=== PATIENT | female | born 1940 | race Two or more races ===

== ENCOUNTER 2025-07-30 00:13 | Inpatient (IN) | payer MEDICARE, MEDICAID ==
[~2025-07-30] VITALS: Ht 162.6 cm; Wt 67.7 kg
--- NOTE | 2025-07-30 01:47 | ED.PDOC ---
GI ASSESSMENT HPI Comments Past Medical History: Past Surgical History: Clarence: HPI: Poor Historian. 85-year-old female presents to emergency department by ambulance from home for five day history of right lower quadrant with the associated diarrhea brown in color. Patient had some episodes of nonspecific nausea and vomiting but weston xiongly denies any nausea and vomiting. Pain is constant nonradiating. No alleviating or precipitating factors. Past Medical History: Past Surgical History: REVIEW OF SYSTEMS: CONSTITUTIONAL: Denies acute: fever, diaphoresis, chills, HEAD: Denies acute: headache, photophobia Eyes: Denies acute: Double vision, vision loss, eye pain, eye discharge. EARS: Denies acute: tinnitus, hearing loss, ear discharge, ear pain, THROAT: Denies acute: sore throat, swelling, difficulty swallowing , pain with swallowing, change in voice. NECK: Denies acute: neck pain, neck swelling, stiff neck. HEART: Denies acute : chest pain, palpitations, LUNGS: Denies acute: SOB, wheezing, cough, hemoptysis ABDOMEN: Denies acute: melena , hematemesis, hematochezia SKIN: Denies acute: rash, redness, lesions, itchiness. EXTREMITIES: Denies acute: calf pain, numbness, tingling, weakness, denies pain in extremity. Denies acute: Low back pain. Neuro: Denies acute: focal neurological deficit, motor or sensory focal neurological deficit, tremors, seizure like activity, confusion, dizziness, change in mental status, loss of bowel or bladder function, cauda equina like symptoms. : Denies acute: dysuria, hematuria, flank pain, increase in urinary frequency. PSYCH: Denies acute: hallucination, suicidal ideation, homicidal ideation. FEMALE: Denies acute: abnormal vaginal bleeding, foul odor, unusual discharge. PHYSICAL EXAM: General: ---moderate-----acute distress, awake and alert. Head: normocephalic, atraumatic. No raccoon's eyes, no rudolph sign. Neck: supple, trachea is midline, no swelling. Throat: Normal phonation. Eyes:, no erythema, no purulent discharge, no proptosis, no icterus. Heart: regular rate, regular rhythm, no significant murmur appreciated. Lungs: no apparent respiratory distress, Able to speak in full sentences. No wheezing, no rhonchi, no crackles. No stridors Clear to auscultation bilaterally. Abdomen: Right lower quadrant tender to palpation, non distended, soft, no guarding, no rebound, + bowel sounds. Neuro: Awake, Alert, oriented to name, self, situation, follows commands GCS=15. Speech is normal. Skin: no petechia, no purpura, no cyanosis, non-pale, not jaundice. Lower extremities: --trace- Pitting edema no deformity, no focal swelling, no calf TTP. Makes eye contact. moves all four extremities. Face: no apparent facial droop. ED COURSE: DISCLAIMER: This medical document was created using an electronic medical record system with voice recognition software and computerized dictation system. Although this document has been carefully reviewed, there might still be some phonetic and typographical errors. Occasional wrong-word or "sound-alike" substitutions may have occurred due to the inherent limitations of voice recognition software. These areas are purely typographical due to imperfections of the software programs and do not reflect any compromise in the patient's medical care. Please read the chart carefully and recognize, using context, where these substitutions have occurred. Chief Complaint: Abdominal Pain Time Seen by MD: 01:45 Reviewed Notes: Nurses Notes, Allergies Allergies: Coded Allergies: No Known Drug Allergy (Verified Allergy, Unknown, 07/30/25) Information Source: Patient Mode of Arrival: EMS Was a procedure done? Was a procedure done?: No GI differential Dx Differential Diagnosis: Other (DDX include Diverticulitis, colitis, gastroenteritis, acute abdomen, SBO, enteritis, constipation, volvulus, appendicitis, Gallbladder disease, choledocolithiasis, ascending cholangitis, pancreatitis, intraAbdominal mass/neoplasm, hepatitis, UTI, pylonephritis, kidney stone, aneurysm, dissection, Inflammatory bowel disease, gastroparesis, ischemic bowel,,,,,,Food poisoning, bacterial/parasitic/viral etiology, trauma, diabetes DKA,ovarian torsion, ovarian cyst/mass, tubo-ovarian abscess, PID, STD.) X-Ray, Labs, Meds, VS Vital Signs Date Time Temp Pulse Resp B/P (MAP) Pulse Ox O2 Delivery O2 Flow Rate FiO2 07/30/25 04:00 83 07/30/25 03:45 86 16 98 Room Air* 0 21 07/30/25 03:15 98.3 71 20 142/55 (84) 98 98.3 07/30/25 02:30 143/68 07/30/25 02:02 74 07/30/25 00:13 98.0 73 18 103/45 94 98.0 Lab Test 07/30/25 02:00 Range/Units White Blood Count 8.3 4.4-10.8 10^3/uL Red Blood Count 3.46 L 4.0-5.20 10^6/uL Hemoglobin 11.3 L 12.2-16.2 g/dL Hematocrit 33.5 L 36.0-46.0 % Mean Corpuscular Volume 96.6 80.0-100.0 fL Mean Corpuscular Hemoglobin 32.7 H 28.0-32.0 pg Mean Corpuscular Hemoglobin Concent 33.9 32.0-36.0 g/dL Red Cell Distribution Width 13.8 11.8-14.3 % Platelet Count 131 L 140-450 10^3/uL Mean Platelet Volume 10.1 6.9-10.8 fL Neutrophils (%) (Auto) 64.3 37.0-80.0 % Lymphocytes (%) (Auto) 12.6 10.0-50.0 % Monocytes (%) (Auto) 22.4 H 0.0-12.0 % Eosinophils (%) (Auto) 0.3 0.0-7.0 % Basophils (%) (Auto) 0.4 0.0-2.0 % Neutrophils # (Auto) 5.3 1.6-8.6 10 ^3/uL Lymphocytes # (Auto) 1.0 0.4-5.4 10 ^3/uL Monocytes # (Auto) 1.9 H 0-1.3 10 ^3/uL Eosinophils # (Auto) 0 0-0.8 10 ^3/uL Basophils # (Auto) 0 0-0.2 10 ^3/uL Nucleated Red Blood Cells 0.0 % Sodium Level 133 L 136-145 mmol/L Potassium Level 3.6 3.5-5.1 mmol/L Chloride Level 103 98-107 mmol/L Carbon Dioxide Level 20 20-31 mmol/L Anion Gap 10 5-15 Blood Urea Nitrogen 9 9-23 mg/dL Creatinine 1.25 H 0.550-1.02 mg/dL Glomerular Filtration Rate Calc 43 >90 mL/min BUN/Creatinine Ratio 7.2 L 10.0-20.0 Serum Glucose 112 H 74-106 mg/dL Lactic Acid Level 1.0 0.4-2.0 mmol/L Calcium Level 7.6 L 8.7-10.4 mg/dL Total Bilirubin 0.9 0.2-1.0 mg/dL Aspartate Amino Transferase (AST) 35 13-40 U/L Alanine Aminotransferase (ALT) 27 7-40 U/L Alkaline Phosphatase 52 46-116 U/L Troponin I High Sensitivity 13 </=34 ng/L Total Protein 6.3 5.7-8.2 g/dL Albumin 3.5 3.2-4.8 g/dL Lipase 16 12-53 U/L Current Medications Medications (Trade) Dose Ordered Sig/Alan Route Start Time Stop Time Status Last Admin Ciprofloxacin 200 ml @ 200 mls/hr ONCE ONCE IV 07/30/25 02:30 07/30/25 03:29 DC 07/30/25 03:30 Metronidazole 100 ml @ 100 mls/hr ONCE ONCE IV 07/30/25 02:30 07/30/25 03:29 DC 07/30/25 04:45 Sodium Chloride 1,000 ml @ 1,000 mls/hr Q1H ONCE IV 07/30/25 02:30 07/30/25 03:29 DC 07/30/25 03:00 Ondansetron HCl (Zofran) 8 mg ONCE ONCE IV 07/30/25 02:30 07/30/25 02:42 DC 07/30/25 02:30 Fentanyl Citrate 50 mcg ONCE ONCE IV 07/30/25 02:30 07/30/25 02:42 DC 07/30/25 02:30 [place] [address] Ph: [phone] DIAGNOSTIC IMAGING Diagnostic Imaging Report : [id number] Signed PATIENT: ROBERT LAWS ACCT: [id number] UNIT: [id number] : 1940 LOC: ER ROOM / BED: / AGE / SEX: 85 / F ADM STATUS: REG ER SERVICE 0121 ORDERING PHYSICIAN: RUBEN COCHRAN DO PROCEDURE(s): CXR1 - CHEST XRAY 1 VIEW REASON: 85Y FEMALE ORDER NUMBER(s): [id number], ACCESSION NUMBER(s): [id number] MEDICAL RECORDS NUMBER: [id number] PROCEDURE: XY CHEST XRAY 1 VIEW DATE: 07/30/2025 01:33 AM HISTORY: 85Y FEMALE Views:1 COMPARISON: XY CHEST TWO VIEWS ROUTINE on DOS: 11/21/24, CXR1 on DOS: 10/22/22, CHEST XRAY 1 VIEW on DOS: 10/22/22 FINDINGS/IMPRESSION: Lungs: Minor fluid is coursing into the left base. Underlying chronic lung changes are suspected. Mediastinum: Mediastinal structures appear unremarkable... Skeletal: The skeletal structures appear unremarkable. ATED BY: NEYMAR YA MD DICTATED DATE/TIME: 07/30/25200 SIGNED BY: NEYMAR YA MD SIGNED DATE/TIME: 07/30/25200 CC: [place] [address] Ph: [phone] DIAGNOSTIC IMAGING Diagnostic Imaging Report : [id number] Signed PATIENT: ROBERT LAWS ACCT: [id number] UNIT: [id number] : 1940 LOC: ER ROOM / BED: / AGE / SEX: 85 / F ADM STATUS: REG ER SERVICE 011 ORDERING PHYSICIAN: RUBEN COCHRAN DO PROCEDURE(s): ABPL - CT AB PEL WO CON-NO ORAL OR IV REASON: abd pain diarrhea ORDER NUMBER(s): [id number], ACCESSION NUMBER(s): [id number] MEDICAL RECORDS NUMBER: [id number] PROCEDURE: CT CT AB PEL WO CON-NO ORAL OR IV DATE: 07/30/2025 01:26 AM HISTORY: abd pain diarrhea TECHNIQUE: CT of the abdomen and pelvis is performed without IV contrast. CONTRAST: none Oral Contrast: No oral contrast was utilized. COMPARISON: KUB ABDOMEN SINGLE VIEW on DOS: 10/21/22, PELVIS AP on DOS: 10/21/22, PELVS on DOS: 10/21/22, KUB on DOS: 10/21/22 RADIATION DOSE INFORMATION: Automated exposure control dose reduction techniques were used. FINDINGS: Lung bases: Minor chronic changes are seen in the lower lungs Mediastinum: Coronary artery calcifications are noted. Diffuse atherosclerotic disease is seen of the thoracic aorta. Liver: The liver is normal in size. There is no focal liver lesion. Biliary ducts: There is no evidence of intrahepatic or extrahepatic biliary ductal dilatation. Gallbladder: The gallbladder has apparently been surgically removed. Spleen: The spleen is normal in size without focal lesion. Stomach: The stomach appears unremarkable. Pancreas: The pancreas is unremarkable. Adrenal glands: The adrenal glands are unremarkable. Kidneys: The kidneys are normal in size and are symmetric. There is no evidence of hydronephrosis. No focal renal lesion is noted. A 2 mm nonobstructing stone is seen in the left kidney Aorta and IVC: Diffuse atherosclerotic calcification is evident. No aneurysm is seen. Mesenteric vessels: Major mesenteric vessels appear to be intact. Atherosclerotic calcification is seen particularly of the renal arteries. Bowel: The visualized portions of the small and large bowel are normal in caliber. There is mild wall thickening and adjacent hazy density of the proximal sigmoid colon which is questionable for diverticulitis. Neoplasia could have a similar appearance. Follow-up colonoscopy is recommended. Appendix: The appendix is not seen. Pelvis:Pelvic structures appear unremarkable. Lymph nodes: There is no evidence of lymphadenopathy. Osseous structures: The osseous structures are intact. No lytic or blastic osseous lesion is noted. Free fluid/free air: None IMPRESSION: 1. Mild wall thickening and adjacent hazy density of the proximal sigmoid colon which is questionable for diverticulitis. Neoplasia could have a similar appearance. Follow-up colonoscopy is recommended. 2. Nonobstructing left renal stone. 3. Diffuse atherosclerotic disease. ATED BY: NEYMAR YA MD DICTATED DATE/TIME: 07/30/25206 SIGNED BY: NEYMAR YA MD SIGNED DATE/TIME: 07/30/25206 CC: Time of 1ST Reevaluation: 01:45 Reevaluation 1ST: Unchanged Patient Education/Counseling: Diagnosis, Treatment Family Education/Counseling: No Family Present Comments MDM: patient presented with the above HPI.--abdominal pain----workup was initiated. patient was found with the above mentioned diagnosis. the following medications were ordered: please refer to order lists of meds and tests obtained by myself Dr. Cochran. Patient ED course and VS have been stabilized. Patient has been reassessed in the ED and remained in a stable condition. Pertinent incidental findings were discussed with the patient and/or family. Patient/family voices understanding and is agreeable with plan. Patient has been observed in the ED adequate length of time to insure improvem ent/stability. Escalation of care considered: Consideration of escalation to observation or admission Fluids and antibiotics and pain medications were given. Patient was ADMITTED to the medicine team for further evaluation and treatment of their presentation. All the reports of any imaging studies that were ordered by myself were reviewed by myself. SEPSIS Sepsis Screen Date sepsis recognized/suspect: Jul 30, 2025 Time Sepsis recognized/suspect: 001 Recent Procedure: No On Antibiotic Therapy: No Respiratory Rate >20: No Heart Rate >90: No Temp<36 C (96.8 F) or >38.3 C: No SBP <90 or MAP <65 mmHG: No New Acute Mental Status Change: No Is the patient on CPAP, BIPAP,: No Physician Orders Food Production Worker (07/30/25 ) Urinalysis (07/30/25 01:11) Ct Ab Pel Wo Con-No Oral Or Iv (07/30/25 01:11) Stool Wbc (07/30/25 01:11) Clostridium Difficile Toxin (07/30/25 01:11) Ova & Parasite Exam (07/30/25 01:11) Stool Bacterial Culture (07/30/25 01:11) Electrocardigram (07/30/25 01:21) Electrocardigram (07/30/25 02:21) Electrocardigram (07/30/25 04:21) Chest Xray 1 View (07/30/25 01:21) Vital Signs Date Time Temp Pulse Resp B/P (MAP) Pulse Ox O2 Delivery O2 Flow Rate FiO2 07/30/25 04:00 83 07/30/25 03:45 86 16 98 Room Air* 0 21 07/30/25 03:15 98.3 71 20 142/55 (84) 98 98.3 07/30/25 02:30 143/68 07/30/25 02:02 74 07/30/25 00:13 98.0 73 18 103/45 94 98.0 Laboratory Tests Test 07/30/25 02:00 Lactic Acid Level 1.0 mmol/L (0.4-2.0) White Blood Count 8.3 10^3/uL (4.4-10.8) Medications Medications Dose Ordered Sig/Alan Route Start Time Stop Time Status Last Admin Dose Admin Ciprofloxacin 200 ml @ 200 mls/hr ONCE ONCE IV 07/30/25 02:30 07/30/25 03:29 DC 07/30/25 03:30 Fentanyl Citrate 50 mcg ONCE ONCE IV 07/30/25 02:30 07/30/25 02:42 DC 07/30/25 02:30 Metronidazole 100 ml @ 100 mls/hr ONCE ONCE IV 07/30/25 02:30 07/30/25 03:29 DC 07/30/25 04:45 Ondansetron HCl 8 mg ONCE ONCE IV 07/30/25 02:30 07/30/25 02:42 DC 07/30/25 02:30 Sodium Chloride 1,000 ml @ 1,000 mls/hr Q1H ONCE IV 07/30/25 02:30 07/30/25 03:29 DC 07/30/25 03:00 Departure 1 Departure Time of Disposition: 02:26 Impression: Primary Impression: Diverticulitis Disposition: ADMITTED INPATIENT Admit to: Tele Condition: Guarded Discharged With: Self Critical Care Note Critical Care Time?: No I personally scribed for RUBEN COCHRAN DO ([email or web address]) on 07/30/25 at 01:47. Electronically submitted by Alfredo Sorenson ([email or web address]). I personally scribed for RUBEN COCHRAN DO ([email or web address]) on 07/30/25 at 02:28. Electronically submitted by Alfredo Sorenson [email or web address]). RUBEN COCHRAN DO Jul 30, 2025 01:47
--- NOTE | 2025-07-30 02:03 | DVH ---
MEDICAL RECORDS NUMBER: [id number] PROCEDURE: XY CHEST XRAY 1 VIEW DATE: 07/30/2025 01:33 AM HISTORY: 85Y FEMALE Views:1 COMPARISON: XY CHEST TWO VIEWS ROUTINE on DOS: 11/21/24, CXR1 on DOS: 10/22/22, CHEST XRAY 1 VIEW on DOS: 10/22/22 FINDINGS/IMPRESSION: Lungs: Minor fluid is coursing into the left base. Underlying chronic lung changes are suspected. Mediastinum: Mediastinal structures appear unremarkable... Skeletal: The skeletal structures appear unremarkable.
--- NOTE | 2025-07-30 02:10 | DVH ---
MEDICAL RECORDS NUMBER: [id number] PROCEDURE: CT CT AB PEL WO CON-NO ORAL OR IV DATE: 07/30/2025 01:26 AM HISTORY: abd pain diarrhea TECHNIQUE: CT of the abdomen and pelvis is performed without IV contrast. CONTRAST: none Oral Contrast: No oral contrast was utilized. COMPARISON: KUB ABDOMEN SINGLE VIEW on DOS: 10/21/22, PELVIS AP on DOS: 10/21/22, PELVS on DOS: 10/21/22, KUB on DOS: 10/21/22 RADIATION DOSE INFORMATION: Automated exposure control dose reduction techniques were used. FINDINGS: Lung bases: Minor chronic changes are seen in the lower lungs Mediastinum: Coronary artery calcifications are noted. Diffuse atherosclerotic disease is seen of the thoracic aorta. Liver: The liver is normal in size. There is no focal liver lesion. Biliary ducts: There is no evidence of intrahepatic or extrahepatic biliary ductal dilatation. Gallbladder: The gallbladder has apparently been surgically removed. Spleen: The spleen is normal in size without focal lesion. Stomach: The stomach appears unremarkable. Pancreas: The pancreas is unremarkable. Adrenal glands: The adrenal glands are unremarkable. Kidneys: The kidneys are normal in size and are symmetric. There is no evidence of hydronephrosis. No focal renal lesion is noted. A 2 mm nonobstructing stone is seen in the left kidney Aorta and IVC: Diffuse atherosclerotic calcification is evident. No aneurysm is seen. Mesenteric vessels: Major mesenteric vessels appear to be intact. Atherosclerotic calcification is seen particularly of the renal arteries. Bowel: The visualized portions of the small and large bowel are normal in caliber. There is mild wall thickening and adjacent hazy density of the proximal sigmoid colon which is questionable for diverticulitis. Neoplasia could have a similar appearance. Follow-up colonoscopy is recommended. Appendix: The appendix is not seen. Pelvis:Pelvic structures appear unremarkable. Lymph nodes: There is no evidence of lymphadenopathy. Osseous structures: The osseous structures are intact. No lytic or blastic osseous lesion is noted. Free fluid/free air: None IMPRESSION: 1. Mild wall thickening and adjacent hazy density of the proximal sigmoid colon which is questionable for diverticulitis. Neoplasia could have a similar appearance. Follow-up colonoscopy is recommended. 2. Nonobstructing left renal stone. 3. Diffuse atherosclerotic disease.
[2025-07-30 02:18] LABS: Hematocrit 33.5 % (36.0-46.0); Hemoglobin 11.3 g/dL (12.2-16.2); Mean Corpuscular Hemoglobin 32.7 pg (28.0-32.0); Mean Corpuscular Volume 96.6 fL (80.0-100.0); Nucleated Red Blood Cells % 0.0 %
[2025-07-30] MEDS: fentaNYL CITRATE 100 MCG/2 ML VL IV ONE (02:30)
[2025-07-30] MEDS: ONDANSETRON HCL 4 MG/2 ML VIAL IV ONE (02:30)
[2025-07-30 02:34] LABS: Alanine Aminotransferase 27 U/L (7-40); Albumin 3.5 g/dL (3.2-4.8); Alkaline Phosphatase 52 U/L (46-116); Anion Gap 10 (5-15); BUN/Creatinine Ratio 7.2 (10.0-20.0); Bilirubin, Total 0.9 mg/dL (0.2-1.0); Blood Urea Nitrogen 9 mg/dL (9-23); Calcium 7.6 mg/dL (8.7-10.4); Carbon Dioxide 20 mmol/L (20-31); Chloride 103 mmol/L (98-107); Glucose 112 mg/dL (74-106); Lipase 16 U/L (12-53); Potassium 3.6 mmol/L (3.5-5.1); Sodium 133 mmol/L (136-145); Total Protein 6.3 g/dL (5.7-8.2)
[2025-07-30] MEDS: SODIUM CHLORIDE 0.9% 1,000 ML IV ONE (03:00)
[2025-07-30] MEDS: CIPROFLOXACIN 400MG/200ML 200 ML IV ONE (03:30)
[2025-07-30 03:45] VITALS: PULSE 86; RESP 16; O2SAT 98
--- NOTE | 2025-07-30 06:27 | ECG ---
[facility] Test Date: 2025-07-30 Test Time: 02:02:36 Pat Name: ROBERT LAWS Department: ED Room: 0202T Gender: F [employer] In Worker: : 1940 Requested By: RUBEN COCHRAN Order Number: [id number] Reading MD: Derick Morrow Measurements Intervals [place] Rate: 74 P: 52 OR: 151 QRS: 8 QRSD: 90 T: 55 QT: 443 QTc: 492 Interpretive Statements Sinus rhythm Low voltage, precordial leads Borderline prolonged QT interval Electronically Signed On 08-01-2025 17:54:58 PST by Derick Morrow Please click the below link to view image of tracing.
[2025-07-30 08:46] VITALS: PULSE 83; RESP 12; O2SAT 98
[2025-07-30] MEDS: INSULIN LISPRO (HUMAN) 100 UNITS/ML ML SC SCH (11:30)
[2025-07-30 12:21] LABS: Chloride 103 mmol/L (98-107); Potassium 3.7 mmol/L (3.5-5.1)
[2025-07-30 12:22] LABS: Sodium 135 mmol/L (136-145)
[2025-07-30 12:23] LABS: Anion Gap 8 (5-15); Carbon Dioxide 24 mmol/L (20-31)
[2025-07-30 12:28] LABS: BUN/Creatinine Ratio 5.3 (10.0-20.0); Blood Urea Nitrogen 10 mg/dL (9-23)
[2025-07-30 12:34] LABS: INR 1.11 (0.9-1.15); Partial Thromboplastin Time 31.4 SEC (24.5-34.5); Prothrombin Time 11.6 sec (9.3-11.8)
[2025-07-30 12:35] LABS: Calcium 7.1 mg/dL (8.7-10.4); Glucose 111 mg/dL (74-106)
--- NOTE | 2025-07-30 14:02 | DVHHPRES ---
History of Present Illness Resident Creating Document: YOLI DANG RESIDENT History of Present Illness This is 85-year-old female with past medical history of DM 2, HLD, HTN, hypothyroidism, osteoporosis, glaucoma vitamin-D deficiency, stroke x3 and last stroke was May 2024. Patient brought by daughter to ER with a complaint of right lower quadrant abdominal pain which is5-9/10 intensity, constant, aggravated on movement, tried fluid and Imodium which does not help. Patient daughter (Celia) in bedside reported patient having loose bowel for last 5 days but stool does not mixed with blood. Patient denies any street food, sick contacts, recent travel. Patient ambulating with walker at home weeks before but now feels generalized weakness and refused to walk. Patient currently alert oriented x3 and code status DNR. Patient denies any fever, nausea, vomiting, headache, dysuria or any other acute distress. Patient never seen by neurologist, follow-up with cardiology Dr. Morrow. No cardiac workup done before. Past medical history: As above Past surgical history: Nothing contributory Family history: Nothing contributory Allergy" no known allergy PCP: Unable to recall name Home medication: Acarbose, latanoprost, vitamin-D, alendronate, Lopressor, aspirin, clopidogrel losartan, atorvastatin levothyroxine, amlodipine. Review of Systems Constitutional: Yes: Weakness, Malaise; No: Fever, Chills, Sweats, Other Eyes: No: Pain, Vision change, Conjunctivae inflammation, Eyelid inflammation, Other, Redness ENT: No: Ear pain, Ear discharge, Nose pain, Nose discharge, Nose congestion, Mouth pain, Mouth swelling, Throat pain, Throat swelling, Other Respiratory: No: Cough, Dry, Shortness of breath, SOB with excertion, Wheezing, Hemoptysis, Pleuritic Pain, Sputum, Wheezing, Other Cardiovascular: No: Chest Pain, Palpitations, Orthopnea, Paroxysmal Noc. Dyspnea, Edema, Lt Headedness, Other Gastrointestinal: Abdominal Pain, Other (Loose stool); No: Nausea, Vomiting, Diarrhea, Constipation, Melena, Hematochezia Genitourinary: No Dysuria, No Frequency, No Incontinence, No Hematuria, No Retention, No Other Skin: No: Rash, Lesions, Jaundice, Bruising, Other Neurological: No: Weakness, Numbness, Incoordination, Change in speech, Confusion, Seizures, Other Allergies: Coded Allergies: No Known Drug Allergy (Verified Allergy, Unknown, 07/30/25) Medications Current Medications Medications Dose Ordered Sig/Alan Route Start Time Stop Time Status Last Admin Dose Admin Ceftriaxone Sodium 50 ml @ 100 mls/hr DAILY@09 IV 07/31/25 09:00 Metronidazole 100 ml @ 100 mls/hr Q8HR IV 07/30/25 14:00 Morphine Sulfate 1 mg Q4HP PRN IV 07/30/25 11:00 Ondansetron HCl 4 mg Q4HPRN PRN IV 07/30/25 11:00 Tamsulosin HCl 0.4 mg QPM PO 07/31/25 18:00 Aspirin 81 mg DAILY PO 07/31/25 10:00 Insulin Human Lispro AC SC 07/30/25 11:30 Latanoprost 1 drop HS EACHEYE 07/30/25 22:00 Clopidogrel Bisulfate 75 mg DAILY PO 07/31/25 10:00 Atorvastatin Calcium 40 mg HS PO 07/30/25 22:00 Levothyroxine Sodium 75 mcg QAM@0600 PO 07/31/25 06:00 Metoprolol Tartrate 25 mg BID PO 07/30/25 22:00 Exam Vital Signs Vital Signs Date Time Temp Pulse Resp B/P (MAP) Pulse Ox O2 Delivery O2 Flow Rate FiO2 07/30/25 12:00 85 07/30/25 10:00 24 109/39 (62) 97 07/30/25 08:46 Room Air* 0 21 07/30/25 08:00 97.1 97.1 General Appearance: Alert, Oriented X3, mild distress HEENT: Atraumatic, PERRLA, EOMI Respiratory: Clear to auscultation, Normal air movement Cardiovascular: Regular rate, Normal S1, Normal S2, No murmurs Abdominal: Normal bowel sounds, Soft, Other (Mild tender on deep palpation right lower) Extremities: No clubbing, No cyanosis, No edema, Normal pulses Skin: No breakdown, No significant lesion Neuro: Normal speech, Strength at 5/5 X4 ext, Sensation intact Psych/Mental Status: Mental status NL, Mood NL Labs/Xrays Labs Test 07/30/25 13:23 07/30/25 11:25 07/30/25 02:00 Range/Units Prothrombin Time 11.6 9.3-11.8 sec Prothrombin Time INR 1.11 0.9-1.15 Activated Partial Thromboplast Time 31.4 24.5-34.5 SEC Sodium Level 135 L 136-145 mmol/L Potassium Level 3.7 3.5-5.1 mmol/L Chloride Level 103 98-107 mmol/L Carbon Dioxide Level 24 20-31 mmol/L Anion Gap 8 5-15 Blood Urea Nitrogen 10 9-23 mg/dL Creatinine 1.87 #H 0.550-1.02 mg/dL Glomerular Filtration Rate Calc 26 >90 mL/min BUN/Creatinine Ratio 5.3 L 10.0-20.0 Serum Glucose 111 H 74-106 mg/dL Serum Osmolality 276 L 278-298 mOsm/kg Calcium Level 7.1 L 8.7-10.4 mg/dL Thyroid Stimulating Hormone (TSH) 9.02 H 0.55-4.78 uIU/mL Eosinophils (%) (Auto) 0.3 0.0-7.0 % Eosinophils # (Auto) 0 0-0.8 10 ^3/uL Basophils # (Auto) 0 0-0.2 10 ^3/uL Nucleated Red Blood Cells 0.0 % Lactic Acid Level 1.0 0.4-2.0 mmol/L Total Bilirubin 0.9 0.2-1.0 mg/dL Aspartate Amino Transferase (AST) 35 13-40 U/L Alanine Aminotransferase (ALT) 27 7-40 U/L Alkaline Phosphatase 52 46-116 U/L Troponin I High Sensitivity 13 </=34 ng/L Total Protein 6.3 5.7-8.2 g/dL Albumin 3.5 3.2-4.8 g/dL Lipase 16 12-53 U/L SEPSIS Sepsis Screen Date sepsis recognized/suspect: Jul 30, 2025 Time Sepsis recognized/suspect: 924 Recent Procedure: No On Antibiotic Therapy: No Respiratory Rate >20: No Heart Rate >90: No Temp<36 C (96.8 F) or >38.3 C: No SBP <90 or MAP <65 mmHG: No New Acute Mental Status Change: No Is the patient on CPAP, BIPAP,: No Physician Orders Urine Sodium (07/30/25 08:32) Admit (07/30/25 10:57) Code Status (07/30/25 10:57) Full Liq Diet (07/30/25 Lunch) Notify Of Changes From Base (07/30/25 10:57) Blood Culture (07/30/25 10:57) Ceftriaxone 1gm/50ml (Rocephin) (07/31/25 09:00) Metronidazole 500mg/100ml (Flagyl 500mg/ (07/30/25 14:00) Morphine Sulfate Injection (07/30/25 11:00) Ondansetron Hcl (Zofran) (07/30/25 11:00) *Dr. Dhaval Lobo [facility] (07/30/25 10:57) Aspirin Tablet (07/31/25 10:00) Insulin Lispro (Human) (Humalog) (07/30/25 11:30) Latanoprost (Xalatan) (07/30/25 22:00) Clopidogrel Bisulfate (Plavix) (07/31/25 10:00) Atorvastatin (Lipitor) (07/30/25 22:00) Levothyroxine Tablet (Synthroid Tablet) (07/31/25 06:00) Metoprolol Tartrate Tablet (Lopressor Ta (07/30/25 22:00) Tamsulosin Hydrochloride (Flomax) (07/31/25 18:00) Complete Blood Count (07/30/25 11:36) Hemoglobin A1c (07/30/25 11:36) Magnesium (07/31/25 04:00) Phosphorus (07/31/25 04:00) Vitamin B12 (07/30/25 11:36) Vitamin D, 25-Hydroxy (07/30/25 11:36) Vital Signs Date Time Temp Pulse Resp B/P (MAP) Pulse Ox O2 Delivery O2 Flow Rate FiO2 07/30/25 12:00 85 07/30/25 10:00 83 24 109/39 (62) 97 07/30/25 08:46 83 12 98 Room Air* 0 21 07/30/25 08:00 82 07/30/25 08:00 97.1 83 12 102/37 (58) 98 97.1 07/30/25 07:15 80 20 107/47 (67) 94 Laboratory Tests Test 07/30/25 02:00 07/30/25 13:23 Lactic Acid Level 1.0 mmol/L (0.4-2.0) White Blood Count 8.3 10^3/uL (4.4-10.8) Pending Medications Medications Dose Ordered Sig/Alan Route Start Time Stop Time Status Last Admin Dose Admin Ciprofloxacin 200 ml @ 200 mls/hr ONCE ONCE IV 07/30/25 02:30 07/30/25 03:29 DC 07/30/25 03:30 200 MLS/HR Fentanyl Citrate 50 mcg ONCE ONCE IV 07/30/25 02:30 07/30/25 02:42 DC 07/30/25 02:30 50 MCG Metronidazole 100 ml @ 100 mls/hr ONCE ONCE IV 07/30/25 02:30 07/30/25 03:29 DC 07/30/25 04:45 100 MLS/HR Ondansetron HCl 8 mg ONCE ONCE IV 07/30/25 02:30 07/30/25 02:42 DC 07/30/25 02:30 8 MG Sodium Chloride 1,000 ml @ 1,000 mls/hr Q1H ONCE IV 07/30/25 02:30 07/30/25 03:29 DC 07/30/25 03:00 1,000 MLS/HR Assessment/Plan Assessment/Plan Intractable abdominal pain due to acute diverticulitis Acute diverticulitis sigmoid colon without perforation or abscess CT abdomen and pelvis: Mild wall thickening and adjacent hazy density of the proximal sigmoid colon which is questionable for diverticulitis. Check blood culture, stool culture enteric panel evaluation for possible Enterococcus, Gram-negative rods, anaerobes C diff, stool for ova parasite and Empiric antibiotic ceftriaxone and Flagyl started NPO while patient in pain Clear liquid diet when pain and nausea resolved admits to low-fiber diet Possible colonoscopy 2-3 months later GI consult as per primary team Antiemetic IV Pain control with IV meds Monitor volume Nonobstructive left renal stone IVF Pain management Tamsulosin 0.4 mg ENDY on superimposed CKD GFR 43 possible CKD stage 3 Baseline creatinine IVF Check urine sodium, urine creatinine to assess ENDY Nephrology consult Avoid nephrotoxic medication Renal function daily Asymptomatic hypovolemic hyponatremia Urine osmolality, serum osmolality Fluid restriction 1.5 L for possible SIADH Transfer sodium level daily while asymptomatic History of multiple stroke, recent on May 2024 EKG shows sinus rhythm, HR 74, QTC 492 No residual weakness Continue aspirin and Plavix Follow-up neurology outpatient Physical therapy Essential hypertension Monitor blood pressure Amlodipine Metoprolol losartan Type 2 diabetes mellitus Home medication acarbose Insulin sliding scale Monitor blood sugar HbA1c 6.0 Hypothyroidism Levothyroxine 75 mcg daily and levothyroxine 88 mcg every alternate TSH 9.02 Hypocalcemia calcium level 7.6> 7.1 Vitamin-D deficiency Vitamin-D level Glaucoma Latanoprost Right knee pain likely osteoarthritis Tylenol as needed GI prophylaxis: Pantoprazole DVT prophylaxis: Lovenox Goals of care discussions with patient and daughter(Celia). DNR status. Case discussed with Dr. Barksdale. Plan discussed with: Patient, Daughter (Celia), Other (Nurse) My Orders Orders - YOLI DANG RESIDENT Procedure Category Date Status Time Admit ADMIT 07/30/25 Transmitted 10:57 Code Status CODE 07/30/25 Transmitted 10:57 Full Liq Diet DIET 07/30/25 Transmitted Lunch Notify Of Changes JULIEAT 07/30/25 In Process From Base 10:57 Blood Culture TAE 07/30/25 In Process 10:57 Ceftriaxone 1gm/50ml PHA 07/31/25 In Process (Rocephin) 09:00 Metronidazole PHA 07/30/25 In Process 500mg/100ml (Flagyl 14:00 Morphine Sulfate PHA 07/30/25 In Process Injection 11:00 Ondansetron Hcl PHA 07/30/25 In Process (Zofran) 11:00 *Dr. [facility] CONS 07/30/25 Transmitted -[place] 10:57 Aspirin Tablet PHA 07/31/25 In Process 10:00 Insulin Lispro PHA 07/30/25 In Process (Human) (Humalog) 11:30 Latanoprost (Xalatan) PHA 07/30/25 In Process 22:00 Clopidogrel Bisulfate PHA 07/31/25 In Process (Plavix) 10:00 Atorvastatin (Lipitor) PHA 07/30/25 In Process 22:00 Levothyroxine Tablet PHA 07/31/25 In Process (Synthroid Tablet) 06:00 Metoprolol Tartrate PHA 07/30/25 In Process Tablet (Lopressor Ta 22:00 Tamsulosin PHA 07/31/25 In Process Hydrochloride (Flomax) 18:00 Complete Blood Count LAB 07/30/25 Logged 11:36 Hemoglobin A1c LAB 07/30/25 Logged 11:36 Magnesium LAB 07/31/25 Verified 04:00 Phosphorus LAB 07/31/25 Verified 04:00 Vitamin B12 LAB 07/30/25 In Process 11:36 Vitamin D, 25-Hydroxy LAB 07/30/25 In Process 11:36 Date of Service: Jul 30, 2025 Billing Provider: EDWARD BARKSDALE MD Common Visit Codes: [id number] INP/OBS CARE (HIGH) Secondary Visit Codes: [id number] CARE PLAN 30 MINUTES YOLI DANG RESIDENT Jul 30, 2025 14:02 EDWARD BARKSDALE MD Jul 31, 2025 11:39
[2025-07-30 14:04] LABS: Hematocrit 36.3 % (36.0-46.0); Hemoglobin 12.0 g/dL (12.2-16.2); Mean Corpuscular Hemoglobin 32.6 pg (28.0-32.0); Mean Corpuscular Volume 98.1 fL (80.0-100.0)
[2025-07-30 14:25] LABS: Total Cells Counted 100.0 (100)
[2025-07-30 14:28] LABS: Urine Amorphous Crystal FEW /hpf (None Seen); Urine Protein, UAD 2+ (Negative); Urine WBC Clumps PRESENT /hpf (None Seen)
[2025-07-30] MEDS: TAMSULOSIN HYDROCHLORIDE 0.4 MG CAP PO ONE (15:39)
[2025-07-30 15:48] VITALS: PULSE 90; RESP 15; O2SAT 98
[2025-07-30 19:25] VITALS: PULSE 95; RESP 16; O2SAT 98
[2025-07-30] MEDS: MORPHINE SULFATE INJ 2 MG/ml SYRG IV PRN (21:20)
[2025-07-30] MEDS: ONDANSETRON HCL 4 MG/2 ML VIAL IV PRN (21:21)
[2025-07-30 21:26] VITALS: PULSE 79; RESP 22; O2SAT 97
[2025-07-30 21:40] VITALS: BP 111/58; PULSE 79; RESP 17; TEMP 98.2; O2SAT 96
[2025-07-30] MEDS: METOPROLOL TARTRATE 25 MG TAB PO SCH (22:00)
[2025-07-30] MEDS: ATORVASTATIN 20 MG TAB PO SCH (23:17)
[2025-07-30] MEDS: LATANOPROST 0.005 % OPTH(EYE) SOL 2.5ML EACHEYE SCH (23:25)
[2025-07-31] VITALS (19 sets, daily range): BP systolic 97–122; BP diastolic 48–70; PULSE 82–125; RESP 14–24; TEMP 97.7–99; O2SAT 83–100
[2025-07-31] MEDS: LEVALBUTEROL HCL 1.25 MG/3 ML NEB NEB SCH (00:18)
[2025-07-31] MEDS: DOXYCYCLINE 100 MG TAB/CAP PO ONE (04:30)
[2025-07-31] MEDS: IPRATROPIUM BROM 0.5 MG/2.5ML INH SOL NEB PRN (05:44)
[2025-07-31 05:54] LABS: Hematocrit 33.1 % (36.0-46.0); Hemoglobin 10.9 g/dL (12.2-16.2); Mean Corpuscular Hemoglobin 32.6 pg (28.0-32.0); Mean Corpuscular Volume 98.7 fL (80.0-100.0); Nucleated Red Blood Cells % 0.1 %
[2025-07-31] MEDS: LEVOTHYROXINE SODIUM 25 MCG TAB PO SCH (05:59)
[2025-07-31 06:11] LABS: Anion Gap 13 (5-15); Chloride 103 mmol/L (98-107); Potassium 3.9 mmol/L (3.5-5.1)
[2025-07-31 06:14] LABS: Calcium 6.9 mg/dL (8.7-10.4); Carbon Dioxide 16 mmol/L (20-31); Sodium 132 mmol/L (136-145)
[2025-07-31 06:17] LABS: BUN/Creatinine Ratio 3.2 (10.0-20.0)
[2025-07-31 06:18] LABS: Blood Urea Nitrogen 8 mg/dL (9-23); Glucose 126 mg/dL (74-106); Magnesium 2.0 mg/dL (1.6-2.6)
[2025-07-31] MEDS: CLOPIDOGREL BISULFATE 75 MG TAB PO SCH (09:43)
[2025-07-31] MEDS: DOXYCYCLINE 100 MG TAB/CAP PO SCH (09:43)
[2025-07-31] MEDS: SODIUM CHLORIDE 0.9% 1,000 ML IV SCH (09:44)
[2025-07-31] MEDS ORDERED: CLOP75TA70 PO (12:11)
[2025-07-31] MEDS ORDERED: LEVO75TA6 PO (12:11)
[2025-07-31] MEDS ORDERED: ATOR40TA52 PO (12:11)
[2025-07-31] MEDS ORDERED: ASPI1TAB20 PO (12:11)
[2025-07-31] MEDS ORDERED: MET25T PO (12:11)
[2025-07-31] MEDS ORDERED: LOSA-535 PO (12:11)
[2025-07-31] MEDS ORDERED: COROSUS OT (12:11)
[2025-07-31] MEDS ORDERED: ALEN70SO2 OR (12:11)
[2025-07-31] MEDS ORDERED: ACAR25TA PO (12:11)
[2025-07-31] MEDS ORDERED: LATA0.008 EACHEYE (12:11)
--- NOTE | 2025-07-31 12:16 | DVH ---
INDICATION: Abnormal renal function TECHNIQUE: Multiple real-time sonographic images of the kidneys and bladder were obtained. COMPARISON: US KIDNEY on DOS: 12/15/24 FINDINGS: The right kidney measures 9 cm in length, which is normal in size. There is normal echogenicity of the right kidney. No hydronephrosis. The left kidney measures 9 cm in length, which is normal in size. There is normal echogenicity of the left kidney. No hydronephrosis. No large intraluminal masses are seen in the bladder. Prior to voiding the bladder volume measures volume 320 cc. IMPRESSION: 1. Normal sonographic appearance of the kidneys. No hydronephrosis.
[2025-07-31] MEDS: SODIUM CHLORIDE 0.9% 500 ML IV ONE (12:42)
--- NOTE | 2025-07-31 14:09 | DVHPNRES ---
Progress Note Date Seen: Jul 31, 2025 Resident Creating Document: JAILYN TOMPKINS RESIDENT Medical Necessity Reason Pt with a Central, PICC or Fol: No Subjective Review of Systems Elvie Lima is an 85-year-old female, [place]-speaking with past medical history of type 2 diabetes mellitus, dyslipidemia, essential hypertension, hypothyroidism, osteoporosis, glaucoma, 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 Patient also complains of associated abdominal pain and difficulty walking. She describes the diarrhea as watery and with no blood. She uses a walker to ambulate at home and was usually able to take care of herself. But since the onset of symptoms her daughter's help her. She denies any street food, sick contact or recent travel. She denies any fever, nausea, vomiting, headache. PMHx:type 2 diabetes mellitus, dyslipidemia, essential hypertension, hypothyroidism, osteoporosis, glaucoma, multiple strokes Family history: Noncontributory Social history: denies smoking, alcohol, or illicit drug use Home medication: bicarb was, alendronate, aspirin, clopidogrel, losartan, atorvastatin, levothyroxine, amlodipine Allergic history: no known allergies General: patient denies fever, fatigue, sweating, any recent changes in appetite and weight. complains of generalized weakness HEENT: No headaches, visiual changes, hearing loss, tinnitus, nasal congestion and discharge, and sore throat. Cardiovascular: Denies chest pain, palpitations, dyspnea on exertion, orthopnea, or claudication. Respiratory: No cough, and wheezing. Gastrointestinal: complains of diarrhea, abdominal pain Genitourinary: No dysuria, hematuria, discharge, frequency, urgency, nocturia, incontinence, and urinary retention. Endocrine: No heat or cold intolerance, polydipsia, polyuria, and polyphagia. Neurological: No dizziness, extremity weakness and numbness, tremors, gait disturbance, seizures, and memory impairment. Psychiatric: Denies depression, anxiety,or insomnia. Musculoskeletal: Denies neck pain, stiffness and swelling, back pain, muscle weakness, joint pain, stiffness, swelling, or limited range of motion. Skin: No rashes, itching, skin lesion, changes in hair, nail, skin texture and breast. Hematologic/Lymphatic: Denies easy bruising, bleeding tendencies, or lymph node enlargement. Objective vital signs Vital Sign Date Time Temp Pulse Resp B/P (MAP) Pulse Ox O2 Delivery O2 Flow Rate FiO2 07/31/25 12:46 97.8 82 16 99/48 (65) 92 97.8 07/31/25 08:00 Nasal Cannula* 4 36 Total Intake and Output 07/30/25 07/30/25 07/31/25 15:00 23:00 07:00 Intake Total 150 ml 200 ml Output Total 0 ml Balance 150 ml 200 ml medications Current Medications Medications Dose Ordered Sig/Alan Route Start Time Stop Time Status Last Admin Dose Admin Ceftriaxone Sodium 50 ml @ 100 mls/hr DAILY@09 IV 07/31/25 09:00 07/31/25 09:43 100 MLS/HR Metronidazole 100 ml @ 100 mls/hr Q8HR IV 07/30/25 14:00 07/31/25 12:33 100 MLS/HR Morphine Sulfate 1 mg Q4HP PRN IV 07/30/25 11:00 07/30/25 21:20 1 MG Ondansetron HCl 4 mg Q4HPRN PRN IV 07/30/25 11:00 07/30/25 21:21 4 MG Tamsulosin HCl 0.4 mg QPM PO 07/31/25 18:00 Aspirin 81 mg DAILY PO 07/31/25 10:00 07/31/25 09:43 81 MG Insulin Human Lispro AC SC 07/30/25 11:30 Latanoprost 1 drop HS EACHEYE 07/30/25 22:00 Clopidogrel Bisulfate 75 mg DAILY PO 07/31/25 10:00 07/31/25 09:43 75 MG Atorvastatin Calcium 40 mg HS PO 07/30/25 22:00 07/30/25 23:17 40 MG Levothyroxine Sodium 75 mcg QAM@0600 PO 07/31/25 06:00 07/31/25 05:59 75 MCG Metoprolol Tartrate 25 mg BID PO 07/30/25 22:00 Levalbuterol HCl 0.625 mg Q6HR NEB 07/31/25 00:00 07/31/25 11:53 0.625 MG Ipratropium Bessie 0.5 mg Q6HPRN PRN NEB 07/31/25 00:00 07/31/25 05:44 0.5 MG Sodium Chloride 1,000 ml @ 75 mls/hr [id number] IV 07/31/25 09:00 07/31/25 09:44 75 MLS/HR Examination General Appearance: Alert, Oriented X3, Cooperative, No acute distress HEENT: Atraumatic, PERRLA, EOMI, Mucous membrane moist/pink Respiratory: Clear to auscultation, Normal air movement Cardiovascular: Regular rate, Normal S1, Normal S2, No murmurs, no chest wall tenderness Abdominal: diffuse abdominal tenderness present Extremities: No clubbing, No cyanosis, No edema, Normal pulses, No tenderness/swelling Skin: No rashes, No breakdown, No significant lesion Neuro: 3/5 strength in left upper limb, 2/5 strength in left lower limb Psych/Mental Status: Mental status NL, Mood NL laboratory and microbiology Laboratory Tests 07/31/25 05:05 Test 07/31/25 05:05 Range/Units Serum Glucose 126 H 74-106 mg/dL Microbiology Date/Time Source Procedure Growth Status 07/30/25 11:55 Blood Blood Culture - Preliminary NO GROWTH AFTER 24 HOURS OF INCUBATION. Resulted Problem List/Assessment/Plan Problem List/Assessment/Plan Assessment/Plan Intractable abdominal pain due to acute diverticulitis Acute diverticulitis sigmoid colon without perforation or abscess Sepsis due to above Possible colitis CT abdomen and pelvis: Mild wall thickening and adjacent hazy density of the proximal sigmoid colon which is questionable for diverticulitis. Check blood culture, stool culture enteric panel evaluation for possible Enterococcus, Gram-negative rods, anaerobes C diff, stool for ova parasite and Empiric antibiotic ceftriaxone and Flagyl started NPO while patient in pain Clear liquid diet when pain and nausea resolved admits to low-fiber diet Possible colonoscopy 2-3 months later GI consult as per primary team Antiemetic IV Pain control with IV meds Monitor volume Uncomplicated UTI on antibiotics IV fluids Nonobstructive left renal stone IVF Pain management Tamsulosin 0.4 mg ENDY on CKD GFR 43 CKD stage 3 Baseline creatinine IVF Check urine sodium, urine creatinine to assess ENDY Nephrology consult Avoid nephrotoxic medication Renal function daily Asymptomatic hypovolemic hyponatremia Urine osmolality, serum osmolality Fluid restriction 1.5 L for possible SIADH Transfer sodium level daily while asymptomatic History of multiple stroke, recent on May 2024 EKG shows sinus rhythm, HR 74, QTC 492 No residual weakness Continue aspirin and Plavix Follow-up neurology outpatient Physical therapy Essential hypertension Monitor blood pressure Amlodipine Metoprolol losartan Type 2 diabetes mellitus Home medication acarbose Insulin sliding scale Monitor blood sugar HbA1c 6.0 Hypothyroidism Levothyroxine 75 mcg daily and levothyroxine 88 mcg every alternate TSH 9.02 Hypocalcemia calcium level 7.6> 7.1 Vitamin-D deficiency Vitamin-D level Glaucoma Latanoprost Right knee pain likely osteoarthritis Tylenol as needed GI prophylaxis: Pantoprazole DVT prophylaxis: Lovenox Case discussed with Dr. Dc Plan discussed with: Patient My Orders My Orders Orders - JAILYN TOMPKINS RESIDENT Procedure Category Date Status Time Urine Bacterial TAE 07/31/25 Uncollected Culture 07:55 Comprehensive LAB 08/01/25 Verified Metabolic Panel 04:00 Dietary Evaluation Review Comments: Nutrition Recommendation: 1) Ensure Clear 240ml BID 2) Advance to soft diet as medically feasible 3) Monitor PO intake, lab values, weight trend, and I/O Expected Outcomes/Goals: GI symptoms to improve FU 3-5 days Date of Service: Jul 31, 2025 Billing Provider: MORGAN SAGE MD Common Visit Codes: [id number] INP/OBS CARE(HIGH) JAILYN TOMPKINS RESIDENT Jul 31, 2025 14:09
[2025-07-31 14:10] LABS: COVID19 ANTIGEN SOFIA FIA NEGATIVE (NEGATIVE)
--- NOTE | 2025-07-31 15:30 | DVHCONRES ---
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 Patient also complains of associated abdominal pain and difficulty walking. She describes the diarrhea as watery and with no blood. She uses a walker to ambulate at home and was usually able to take care of herself. But since the onset of symptoms her daughter's help her. She denies any street food, sick contact or recent travel. She denies any fever, nausea, vomiting, headache. PMHx:type 2 diabetes mellitus, dyslipidemia, essential hypertension, hy pothyroidism, osteoporosis, glaucoma, multiple strokes Family history: Noncontributory Social history: denies smoking, alcohol, or illicit drug use Home medication: bicarb was, alendronate, aspirin, clopidogrel, losartan, atorvastatin, levothyroxine, amlodipine Allergic history: no known allergies Patient seen and examined at the bedside. Patient is still complaining of generalized weakness, diarrhea and abdominal pain but no new complaints and rest of ROS is negative. Allergies: Coded Allergies: No Known Drug Allergy (Verified Allergy, Unknown, 07/30/25) Home Meds Reported Medications Levothyroxine Sodium (Levothyroxine Sodium) 75 Mcg Tab, 1 TAB PO DAILY, #30 TAB 5 Refills 07/31/25 Atorvastatin Calcium (ATORVASTATIN CALCIUM) 40 Mg Tab, 1 TAB PO DAILY, #30 TAB 5 Refills 07/31/25 Losartan Potassium (Losartan Potassium) 100 Mg Tab, 1 TAB PO DAILY, #30 TAB 5 Refills 07/31/25 Clopidogrel Bisulfate (CLOPIDOGREL) 75 Mg Tab, 1 TAB PO DAILY, #90 TAB 1 Refill 07/31/25 Aspirin (Aspir-81) 81 Mg Tab, 1 TAB PO DAILY, #30 TAB 5 Refills 07/31/25 Metoprolol Tartrate (Lopressor) 25 Mg Tb, 25 MG PO Q12HR, TAB 0 Refills 07/31/25 Alendronate Sodium (ALENDRONATE SODIUM) 70 Mg/75 Ml Lisa, 70 MG OR, ML 07/31/25 Latanoprost (LATANOPROST) 0.005 % Lisa, 1 DROP EACHEYE QPM, #7.5 ML 3 Refills 07/31/25 [id number] (Otic) (Cortisporin Otic Susp) [address], 1 DROP OT, DROP 07/31/25 Acarbose (Acarbose) 25 Mg Tab, 25 MG PO, TAB 07/31/25 Current Medications Current Medications Medications (Trade) Dose Ordered Sig/Alan Route PRN Reason Start Time Stop Time Status Last Admin Ceftriaxone Sodium 50 ml @ 100 mls/hr DAILY@09 IV 07/31/25 09:00 07/31/25 09:43 Tamsulosin HCl (Flomax) 0.4 mg QPM PO 07/31/25 18:00 Aspirin 81 mg DAILY PO 07/31/25 10:00 07/31/25 09:43 Latanoprost (Xalatan) 1 drop HS EACHEYE 07/30/25 22:00 Clopidogrel Bisulfate (Plavix) 75 mg DAILY PO 07/31/25 10:00 07/31/25 09:43 Atorvastatin Calcium (Lipitor) 40 mg HS PO 07/30/25 22:00 07/30/25 23:17 Levothyroxine Sodium (Synthroid Tablet) 75 mcg QAM@0600 PO 07/31/25 06:00 07/31/25 05:59 Metoprolol Tartrate (Lopressor Tablet) 25 mg BID PO 07/30/25 22:00 Levalbuterol HCl (Xopenex Medneb) 0.625 mg Q6HR NEB 07/31/25 00:00 07/31/25 11:53 Ipratropium [place] (Atrovent Medneb) 0.5 mg Q6HPRN PRN NEB SHORTNESS OF BREATH 07/31/25 00:00 07/31/25 05:44 Doxycycline Monohydrate (Vibramycin Tablet) 100 mg Q12HR PO 07/31/25 10:00 07/31/25 10:15 DC 07/31/25 09:43 Sodium Chloride 1,000 ml @ 75 mls/hr [id number] IV 07/31/25 09:00 07/31/25 09:44 Vital Signs Vital Signs Date Time Temp Pulse Resp B/P (MAP) Pulse Ox O2 Delivery O2 Flow Rate FiO2 07/31/25 12:46 97.8 82 16 99/48 (65) 92 97.8 07/31/25 08:00 Nasal Cannula* 4 36 Physical Exam General Appearance: Alert, Oriented X3, Cooperative, No acute distress HEENT: Atraumatic, PERRLA, EOMI, Mucous membrane moist/pink Respiratory: Clear to auscultation, Normal air movement Cardiovascular: Regular rate, Normal S1, Normal S2, No murmurs, no chest wall tenderness Abdominal: diffuse abdominal tenderness present Extremities: No clubbing, No cyanosis, No edema, Normal pulses, No tenderness/swelling Skin: No rashes, No breakdown, No significant lesion Neuro: 3/5 strength in left upper limb, 2/5 strength in left lower limb Psych/Mental Status: Mental status NL, Mood NL Labs/Diagnostic Data Labs Test 07/31/25 13:35 07/31/25 12:00 07/31/25 05:05 07/30/25 13:57 Range/Units Influenza Type A Antigen Negative Negative Influenza Type B Antigen Negative Negative SARS-CoV-2 Antigen (Rapid) Negative NEGATIVE POC Glucose 119 H 70-106 mg/dl White Blood Count 10.0 4.4-10.8 10^3/uL Red Blood Count 3.35 L 4.0-5.20 10^6/uL Hemoglobin 10.9 L 12.2-16.2 g/dL Hematocrit 33.1 L 36.0-46.0 % Mean Corpuscular Volume 98.7 80.0-100.0 fL Mean Corpuscular Hemoglobin 32.6 H 28.0-32.0 pg Mean Corpuscular Hemoglobin Concent 33.1 32.0-36.0 g/dL Red Cell Distribution Width 14.3 11.8-14.3 % Platelet Count 128 L 140-450 10^3/uL Mean Platelet Volume 10.1 6.9-10.8 fL Neutrophils (%) (Auto) 77.6 37.0-80.0 % Lymphocytes (%) (Auto) 7.3 L 10.0-50.0 % Monocytes (%) (Auto) 14.9 H 0.0-12.0 % Eosinophils (%) (Auto) 0.0 0.0-7.0 % Basophils (%) (Auto) 0.2 0.0-2.0 % Neutrophils # (Auto) 7.7 1.6-8.6 10 ^3/uL Lymphocytes # (Auto) 0.7 0.4-5.4 10 ^3/uL Monocytes # (Auto) 1.5 H 0-1.3 10 ^3/uL Eosinophils # (Auto) 0 0-0.8 10 ^3/uL Basophils # (Auto) 0 0-0.2 10 ^3/uL Nucleated Red Blood Cells 0.1 % Sodium Level 132 L 136-145 mmol/L Potassium Level 3.9 3.5-5.1 mmol/L Chloride Level 103 98-107 mmol/L Carbon Dioxide Level 16 L 20-31 mmol/L Anion Gap 13 5-15 Blood Urea Nitrogen 8 L 9-23 mg/dL Creatinine 2.51 #H 0.550-1.02 mg/dL Glomerular Filtration Rate Calc 19 >90 mL/min BUN/Creatinine Ratio 3.2 L 10.0-20.0 Serum Glucose 126 H 74-106 mg/dL Calcium Level 6.9 L 8.7-10.4 mg/dL Phosphorus Level 2.7 2.4-5.1 mg/dL Magnesium Level 2.0 1.6-2.6 mg/dL Differential Total Cells Counted 100.0 100 Neutrophils % (Manual) 60 37.0-80.0 Band Neutrophils % (Manual) 9 Lymphocytes % (Manual) 14 10.0-50.0 Monocytes % (Manual) 17 H 0-12 Eosinophils % (Manual) 0 0-7 Basophils % (Manual) 0 0.0-2.0 Metamyelocytes % (manual) 0 Myelocytes % (Manual) 0 Promyelocytes % (Manual) 0 Blast Cells % (Manual) 0 Reactive Lymphocytes 0 Platelet Estimate Decreased Hemoglobin A1c 6.0 H <5.7 % A1C B-Type Natriuretic Peptide 378.24 0-100 pg/mL Test 07/30/25 13:45 07/30/25 11:25 07/30/25 02:00 Range/Units Urine Color Brown H Yellow Urine Clarity Ex.turbid Clear Urine pH 7.0 5.0-9.0 Urine Specific [place] 1.006 1.001-1.035 Urine Protein 2+ H Negative Urine Ketones Negative Negative Urine Blood 2+ H Negative /uL Urine Nitrite Negative Negative Urine Bilirubin Negative Negative Urine Urobilinogen Normal Negative mg/dL Urine Leukocyte Esterase 3+ Negative /uL Urine RBC 95 0 - 4 /hpf Urine WBC Clumps Present None Seen /hpf Urine Microscopic WBC 1000 H 0-5 /HPF Urine Squamous Epithelial Cells None seen <5 /hpf Urine Amorphous Crystals Few None Seen /hpf Urine Bacteria Many H None Seen /hpf Urine Mucus Moderate None Seen Urine Osmolality 186 mOsm/kg Urine Sodium 24 L 40-220 mmol/L Urine Glucose Normal Normal mg/dL Prothrombin Time 11.6 9.3-11.8 sec Prothrombin Time INR 1.11 0.9-1.15 Activated Partial Thromboplast Time 31.4 24.5-34.5 SEC Serum Osmolality 276 L 278-298 mOsm/kg Vitamin B12 Level 1872 H 211-911 pg/mL Vitamin D 25-Hydroxy 48.8 30.0-100 ng/mL Thyroid Stimulating Hormone (TSH) 9.02 H 0.55-4.78 uIU/mL Lactic Acid Level 1.0 0.4-2.0 mmol/L Total Bilirubin 0.9 0.2-1.0 mg/dL Aspartate Amino Transferase (AST) 35 13-40 U/L Alanine Aminotransferase (ALT) 27 7-40 U/L Alkaline Phosphatase 52 46-116 U/L Troponin I High Sensitivity 13 </=34 ng/L Total Protein 6.3 5.7-8.2 g/dL Albumin 3.5 3.2-4.8 g/dL Lipase 16 12-53 U/L Microbiology Date/Time Source Procedure Growth Status 07/30/25 11:55 Blood Blood Culture - Preliminary NO GROWTH AFTER 24 HOURS OF INCUBATION. Resulted Assessment ENDY Likley VMN on ? CKD 3 Acute diverticulitis sigmoid colon without perforation or abscess Sepsis due to above Possible colitis Uncomplicated UTI Nonobstructive left renal stone Asymptomatic hypovolemic hyponatremia Type 2 DM Hypothyroidism Vitamin-D deficiency Recommendations Monitor lab Strict I&Os Assess fluid status daily Renal ultrasound showed no significant changes Ordered urine studies Bladder scan pre and postvoid Straight cath if unable to void will follow Rest of management as per primary team Case discussed with Dr. Polanco Plan discussed with: Patient, Other (RN) SIRI AC RESIDENT Jul 31, 2025 15:30
[2025-07-31] MEDS: SODIUM CHLORIDE 0.9% 1,000 ML IV ONE (16:30)
[2025-07-31] MEDS: TAMSULOSIN HYDROCHLORIDE 0.4 MG CAP PO SCH (17:54)
[2025-07-31 18:49] LABS: Protein, Urine 65.6 mg/dL (1-14)
[2025-08-01] VITALS (15 sets, daily range): BP systolic 94–125; BP diastolic 44–71; PULSE 81–113; RESP 14–18; TEMP 96.8–98.4; O2SAT 91–100
[2025-08-01 07:29] LABS: Hematocrit 31.7 % (36.0-46.0); Hemoglobin 10.7 g/dL (12.2-16.2); Mean Corpuscular Hemoglobin 32.8 pg (28.0-32.0); Mean Corpuscular Volume 97.4 fL (80.0-100.0); Nucleated Red Blood Cells % 0.0 %
[2025-08-01 08:05] LABS: Alanine Aminotransferase 24 U/L (7-40); Alkaline Phosphatase 64 U/L (46-116); Anion Gap 12 (5-15); BUN/Creatinine Ratio 7.1 (10.0-20.0); Blood Urea Nitrogen 15 mg/dL (9-23); Chloride 105 mmol/L (98-107); Glucose 101 mg/dL (74-106); Potassium 3.6 mmol/L (3.5-5.1)
[2025-08-01 08:06] LABS: Bilirubin, Total 0.3 mg/dL (0.2-1.0)
[2025-08-01 08:11] LABS: Albumin 3.0 g/dL (3.2-4.8); Calcium 6.6 mg/dL (8.7-10.4); Carbon Dioxide 18 mmol/L (20-31); Sodium 135 mmol/L (136-145); Total Protein 5.3 g/dL (5.7-8.2)
[2025-08-01] MEDS ORDERED: VANCOMYCIN PER PHARMACY 0 MG IV SCH (08:30)
[2025-08-01] MEDS: VANCOMYCIN 1GM/250ML KIT 250 ML IV ONE (08:45)
[2025-08-01] MEDS: SODIUM CHLORIDE 0.9% 500 ML IV ONE (10:15)
[2025-08-01] MEDS: SODIUM BICARB 8.4% 50Meq/50ml SYR Vial IV ONE (10:45)
[2025-08-01] MEDS: POTASSIUM CHL 20MEQ/100ML 100 ML IV ONE (10:45)
[2025-08-01] MEDS: LACTATED RINGER'S 1,000 ML IV SCH (10:45)
[2025-08-01] MEDS: DOXYCYCLINE 100MG/100ML 100 ML IV SCH (11:41)
[2025-08-01] MEDS: SODIUM CHLORIDE 0.9% 1,000 ML IV ONE (11:45)
[2025-08-01] MEDS: HYDROCORTISONE SOD SUCC 100 MG/2ML INJ VIAL IV SCH (11:45)
--- NOTE | 2025-08-01 13:17 | DVHPN2 ---
Progress Note Date Seen: Aug 01, 2025 Resident Creating Document: SIRI AC RESIDENT Medical Necessity Reason Pt with a Central, PICC or Fol: No Subjective Review of Systems Patient seen and examined at the bedside. Patient is still complaining of generalized weakness, diarrhea and abdominal pain but no new complaints and rest of ROS is negative. Patient reports: Feels better Objective vital signs Vital Sign Date Time Temp Pulse Resp B/P (MAP) Pulse Ox O2 Delivery O2 Flow Rate FiO2 08/01/25 12:50 96.8 81 16 96/52 (67) 97 96.8 08/01/25 11:55 Nasal Cannula* 4 36 Total Intake and Output 07/31/25 07/31/25 08/01/25 15:00 23:00 07:00 Intake Total 150 ml 950 ml 600 ml Balance 150 ml 950 ml 600 ml medications Current Medications Medications Dose Ordered Sig/Alan Route Start Time Stop Time Status Last Admin Dose Admin Morphine Sulfate 1 mg Q4HP PRN IV 07/30/25 11:00 08/01/25 06:34 1 MG Ondansetron HCl 4 mg Q4HPRN PRN IV 07/30/25 11:00 07/30/25 21:21 4 MG Aspirin 81 mg DAILY PO 07/31/25 10:00 08/01/25 09:38 81 MG Insulin Human Lispro AC SC 07/30/25 11:30 Latanoprost 1 drop HS EACHEYE 07/30/25 22:00 Clopidogrel Bisulfate 75 mg DAILY PO 07/31/25 10:00 08/01/25 09:39 75 MG Atorvastatin Calcium 40 mg HS PO 07/30/25 22:00 07/31/25 21:58 40 MG Levothyroxine Sodium 75 mcg QAM@0600 PO 07/31/25 06:00 08/01/25 06:10 75 MCG Metoprolol Tartrate 25 mg BID PO 07/30/25 22:00 08/01/25 09:39 25 MG Levalbuterol HCl 0.625 mg Q6HR NEB 07/31/25 00:00 08/01/25 11:57 0.625 MG Ipratropium [place] 0.5 mg Q6HPRN PRN NEB 07/31/25 00:00 08/01/25 06:06 0.5 MG Piperacillin Sod/ Tazobactam Sod 100 ml @ 25 mls/hr Q8HR IV 08/01/25 14:00 Doxycycline Hyclate 100 ml @ 50 mls/hr Q12H IV 08/01/25 09:45 08/01/25 11:41 50 MLS/HR Lactated Ringer's 1,000 ml @ 125 mls/hr Q8H IV 08/01/25 10:45 Hydrocortisone Sodium Succinate 100 mg Q12HR IV 08/01/25 11:45 Examination General Appearance: Alert, Oriented X3, Cooperative, No acute distress HEENT: Atraumatic, PERRLA, EOMI, Mucous membrane moist/pink Respiratory: Clear to auscultation, Normal air movement Cardiovascular: Regular rate, Normal S1, Normal S2, No murmurs, no chest wall tenderness Abdominal: diffuse abdominal tenderness present Extremities: No clubbing, No cyanosis, No edema, Normal pulses, No tenderness/swelling Skin: No rashes, No breakdown, No significant lesion Neuro: 3/5 strength in left upper limb, 2/5 strength in left lower limb Psych/Mental Status: Mental status NL, Mood NL laboratory and microbiology Laboratory Tests 08/01/25 06:14 Test 08/01/25 06:14 Range/Units Serum Glucose 101 74-106 mg/dL Microbiology Date/Time Source Procedure Growth Status 08/01/25 00:00 Stool Received 07/31/25 18:05 Voided Urine Urine Culture - Preliminary No growth Resulted 07/30/25 11:55 Blood Blood Culture - Preliminary NO GROWTH AFTER 48 HOURS OF INCUBATION. Resulted Labs and/or images reviewed: Labs reviewed by me, Image(s) reviewed by me Problem List/Assessment/Plan Problem List/Assessment/Plan ENDY Likley hemodynamic mediated VMN Acute diverticulitis sigmoid colon without perforation or abscess Sepsis due to above Possible colitis Uncomplicated UTI Nonobstructive left renal stone Asymptomatic hypovolemic hyponatremia Type 2 DM Hypothyroidism Vitamin-D deficiency Recommendations Monitor lab Strict I&Os IVF Assess fluid status daily Encouraged oral intake Renal ultrasound showed no significant changes Ordered urine studies, FENa is 0.2% Bladder scan pre and postvoid unremarkable will follow Rest of management as per primary team Case discussed with Dr. Polanco Plan discussed with: Patient, Daughter My Orders My Orders Orders - SIRI AC RESIDENT Procedure Category Date Status Time Strict I & O JULIETA 07/31/25 In Process 15:26 Bladder Scan ORDERS 07/31/25 Transmitted 15:26 Straightcath If ORDERS 07/31/25 Transmitted Unable To Void 15:26 Lactated Ringer's PHA 08/01/25 In Process 10:45 Dietary Evaluation Review Comments: Nutrition Recommendation: 1) Ensure Clear 240ml BID 2) Advance to soft diet as medically feasible 3) Monitor PO intake, lab values, weight trend, and I/O Expected Outcomes/Goals: GI symptoms to improve FU 3-5 days SIRI AC RESIDENT Aug 01, 2025 13:17
[2025-08-01] MEDS: PIPERACILLIN-TAZOB 3.375GM 100 ML IV SCH (14:00)
--- NOTE | 2025-08-01 16:10 | DVHPNRES ---
Progress Note Date Seen: Aug 01, 2025 Resident Creating Document: JAILYN TOMPKINS RESIDENT Medical Necessity Reason Pt with a Central, PICC or Fol: No Subjective Review of Systems Patient seen at bedside. Complains of abdominal pain. Blood pressure dropping. Started on IV fluids and hydrocortisone. Creatinine levels improving. Pending culture results. 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 Patient also complains of associated abdominal pain and difficulty walking. She describes the diarrhea as watery and with no blood. She uses a walker to ambulate at home and was usually able to take care of herself. But since the onset of symptoms her daughter's help her. She denies any street food, sick contact or recent travel. She denies any fever, nausea, vomiting, headache. PMHx:type 2 diabetes mellitus, dyslipidemia, essential hypertension, hypothyroidism, osteoporosis, glaucoma, multiple strokes Family history: Noncontributory Social history: denies smoking, alcohol, or illicit drug use Home medication: bicarb was, alendronate, aspirin, clopidogrel, losartan, atorvastatin, levothyroxine, amlodipine Allergic history: no known allergies General: patient denies fever, fatigue, sweating, any recent changes in appetite and weight. complains of generalized weakness HEENT: No headaches, visiual changes, hearing loss, tinnitus, nasal congestion and discharge, and sore throat. Cardiovascular: Denies chest pain, palpitations, dyspnea on exertion, orthopnea, or claudication. Respiratory: No cough, and wheezing. Gastrointestinal: complains of diarrhea, abdominal pain Genitourinary: No dysuria, hematuria, discharge, frequency, urgency, nocturia, incontinence, and urinary retention. Endocrine: No heat or cold intolerance, polydipsia, polyuria, and polyphagia. Neurological: No dizziness, extremity weakness and numbness, tremors, gait disturbance, seizures, and memory impairment. Psychiatric: Denies depression, anxiety,or insomnia. Musculoskeletal: Denies neck pain, stiffness and swelling, back pain, muscle weakness, joint pain, stiffness, swelling, or limited range of motion. Skin: No rashes, itching, skin lesion, changes in hair, nail, skin texture and breast. Hematologic/Lymphatic: Denies easy bruising, bleeding tendencies, or lymph node enlargement. Objective vital signs Vital Sign Date Time Temp Pulse Resp B/P (MAP) Pulse Ox O2 Delivery O2 Flow Rate FiO2 08/01/25 12:50 96.8 81 16 96/52 (67) 97 96.8 08/01/25 11:55 Nasal Cannula* 4 36 Total Intake and Output 07/31/25 07/31/25 08/01/25 15:00 23:00 07:00 Intake Total 150 ml 950 ml 600 ml Balance 150 ml 950 ml 600 ml medications Current Medications Medications Dose Ordered Sig/Alan Route Start Time Stop Time Status Last Admin Dose Admin Morphine Sulfate 1 mg Q4HP PRN IV 07/30/25 11:00 08/01/25 06:34 1 MG Ondansetron HCl 4 mg Q4HPRN PRN IV 07/30/25 11:00 07/30/25 21:21 4 MG Aspirin 81 mg DAILY PO 07/31/25 10:00 08/01/25 09:38 81 MG Insulin Human Lispro AC SC 07/30/25 11:30 Latanoprost 1 drop HS EACHEYE 07/30/25 22:00 Clopidogrel Bisulfate 75 mg DAILY PO 07/31/25 10:00 08/01/25 09:39 75 MG Atorvastatin Calcium 40 mg HS PO 07/30/25 22:00 07/31/25 21:58 40 MG Levothyroxine Sodium 75 mcg QAM@0600 PO 07/31/25 06:00 08/01/25 06:10 75 MCG Metoprolol Tartrate 25 mg BID PO 07/30/25 22:00 08/01/25 09:39 25 MG Levalbuterol HCl 0.625 mg Q6HR NEB 07/31/25 00:00 08/01/25 11:57 0.625 MG Ipratropium [place] 0.5 mg Q6HPRN PRN NEB 07/31/25 00:00 08/01/25 06:06 0.5 MG Piperacillin Sod/ Tazobactam Sod 100 ml @ 25 mls/hr Q8HR IV 08/01/25 14:00 Doxycycline Hyclate 100 ml @ 50 mls/hr Q12H IV 08/01/25 09:45 08/01/25 11:41 50 MLS/HR Lactated Ringer's 1,000 ml @ 125 mls/hr Q8H IV 08/01/25 10:45 Hydrocortisone Sodium Succinate 100 mg Q12HR IV 08/01/25 11:45 Examination General Appearance: Alert, Oriented X3, Cooperative, No acute distress HEENT: Atraumatic, PERRLA, EOMI, Mucous membrane moist/pink Respiratory: Clear to auscultation, Normal air movement Cardiovascular: Regular rate, Normal S1, Normal S2, No murmurs, no chest wall tenderness Abdominal: diffuse abdominal tenderness present Extremities: No clubbing, No cyanosis, No edema, Normal pulses, No tenderness/swelling Skin: No rashes, No breakdown, No significant lesion Neuro: 3/5 strength in left upper limb, 2/5 strength in left lower limb Psych/Mental Status: Mental status NL, Mood NL laboratory and microbiology Laboratory Tests 08/01/25 06:14 Test 08/01/25 06:14 Range/Units Serum Glucose 101 74-106 mg/dL Microbiology Date/Time Source Procedure Growth Status 08/01/25 00:00 Stool Clostridium difficile Toxin Assay - Final Complete 07/31/25 18:05 Voided Urine Urine Culture - Preliminary No growth Resulted 07/30/25 11:55 Blood Blood Culture - Preliminary NO GROWTH AFTER 48 HOURS OF INCUBATION. Resulted Problem List/Assessment/Plan Problem List/Assessment/Plan Assessment/Plan Intractable abdominal pain due to acute diverticulitis Acute diverticulitis sigmoid colon without perforation or abscess Sepsis due to above Possible colitis IV fluids Hydrocortisone CT abdomen and pelvis: Mild wall thickening and adjacent hazy density of the proximal sigmoid colon which is questionable for diverticulitis. Check blood culture, stool culture enteric panel evaluation for possible Enterococcus, Gram-negative rods, anaerobes C diff, stool for ova parasite and Empiric antibiotic ceftriaxone and Flagyl started NPO while patient in pain Clear liquid diet when pain and nausea resolved admits to low-fiber diet Possible colonoscopy 2-3 months later GI consult as per primary team Antiemetic IV Pain control with IV meds Monitor volume Uncomplicated UTI on antibiotics IV fluids Nonobstructive left renal stone IVF Pain management Tamsulosin 0.4 mg ENDY on CKD GFR 43 CKD stage 3 Baseline creatinine IVF Check urine sodium, urine creatinine to assess ENDY Nephrology consult Avoid nephrotoxic medication Renal function daily Asymptomatic hypovolemic hyponatremia Urine osmolality, serum osmolality Fluid restriction 1.5 L for possible SIADH Transfer sodium level daily while asymptomatic History of multiple stroke, recent on May 2024 EKG shows sinus rhythm, HR 74, QTC 492 No residual weakness Continue aspirin and Plavix Follow-up neurology outpatient Physical therapy Essential hypertension Monitor blood pressure Amlodipine Metoprolol losartan Type 2 diabetes mellitus Home medication acarbose Insulin sliding scale Monitor blood sugar HbA1c 6.0 Hypothyroidism Levothyroxine 75 mcg daily and levothyroxine 88 mcg every alternate TSH 9.02 Hypocalcemia calcium level 7.6> 7.1 Vitamin-D deficiency Vitamin-D level Glaucoma Latanoprost Right knee pain likely osteoarthritis Tylenol as needed GI prophylaxis: Pantoprazole DVT prophylaxis: Lovenox Case discussed with Dr. Dc Plan discussed with: Patient My Orders My Orders Orders - JAILYN TOMPKINS Procedure Category Date Status Time Sodium Chloride 0.9% PHA 08/01/25 In Process 11:45 Hydrocortisone PHA 08/01/25 In Process Succinate Inj 11:45 Kub Abdomen Single XY 08/01/25 Taken View 13:12 Chest Xray 1 View XY 08/01/25 Taken 13:12 Dietary Evaluation Review Comments: Nutrition Recommendation: 1) Ensure Clear 240ml BID 2) Advance to soft diet as medically feasible 3) Monitor PO intake, lab values, weight trend, and I/O Expected Outcomes/Goals: GI symptoms to improve FU 3-5 days Date of Service: Aug 01, 2025 Billing Provider: MORGAN SAGE MD Common Visit Codes: [id number] INP/OBS CARE(HIGH) JAILYN TOMPKINS RESIDENT Aug 01, 2025 16:10
[2025-08-01] MEDS: POTASSIUM CHL 20 Meq TABLET PO ONE (21:55)
[2025-08-02] VITALS (16 sets, daily range): BP systolic 108–159; BP diastolic 54–73; PULSE 60–98; RESP 16–20; TEMP 96.3–98; O2SAT 93–100
[2025-08-02] MEDS: PIPERACILLIN-TAZOB 3.375GM 100 ML IV SCH (00:24)
[2025-08-02 07:00] LABS: Hematocrit 34.6 % (36.0-46.0); Hemoglobin 11.7 g/dL (12.2-16.2); Mean Corpuscular Hemoglobin 32.2 pg (28.0-32.0); Mean Corpuscular Volume 95.0 fL (80.0-100.0); Nucleated Red Blood Cells % 0.0 %
[2025-08-02 07:22] LABS: Alanine Aminotransferase 27 U/L (7-40); Albumin 3.4 g/dL (3.2-4.8); Alkaline Phosphatase 73 U/L (46-116); Anion Gap 10 (5-15); BUN/Creatinine Ratio 7.0 (10.0-20.0); Blood Urea Nitrogen 11 mg/dL (9-23); Carbon Dioxide 24 mmol/L (20-31); Chloride 104 mmol/L (98-107); Potassium 4.0 mmol/L (3.5-5.1); Sodium 138 mmol/L (136-145); Total Protein 6.2 g/dL (5.7-8.2)
[2025-08-02 07:23] LABS: Bilirubin, Total 0.4 mg/dL (0.2-1.0)
[2025-08-02 07:27] LABS: Calcium 7.2 mg/dL (8.7-10.4); Glucose 155 mg/dL (74-106)
[2025-08-02] MEDS: VANCOMYCIN HCL 125 MG CAP PO ONE (09:51)
[2025-08-02] MEDS: LACTATED RINGER'S 1,000 ML IV SCH (11:00)
--- NOTE | 2025-08-02 12:07 | DVH ---
Date: 08/01/2025 01:24 PM Examination: XY KUB ABDOMEN SINGLE VIEW History: ? fluid buildup Comparison: KUB ABDOMEN SINGLE VIEW on DOS: 10/21/22, KUB on DOS: 10/21/22 TECHNIQUE: Frontal views of the abdomen was obtained. FINDINGS: Gaseous distention of small and large bowel loops noted. There is no obstruction. Patient is status post cholecystectomy. IMPRESSION: 1. Nonobstructive bowel gas pattern. [employer]
--- NOTE | 2025-08-02 12:09 | DVH ---
CHEST RADIOGRAPH Indication: ? fluid buildup Technique: Single frontal view of the chest was obtained Comparison: XY CHEST XRAY 1 VIEW on DOS: 07/30/25, XY CHEST TWO VIEWS ROUTINE on DOS: 11/21/24, CXR1 on DOS: 10/22/22, CHEST XRAY 1 VIEW on DOS: 10/22/22 FINDINGS: Lines and Tubes: None Lungs: Increased interstitial markings noted bilaterally. Pleura: Small left effusion noted. No pneumothorax. Cardiomediastinal contours: Unremarkable Bones: No acute osseous abnormality. IMPRESSION: 1. Increased interstitial markings noted bilaterally which may reflect pulmonary edema or atypical infection. 2. Small left pleural effusion. 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
[2025-08-02] MEDS: VANCOMYCIN HCL 125 MG CAP PO SCH (14:31)
--- NOTE | 2025-08-02 14:43 | DVHPN2 ---
Progress Note Date Seen: Aug 02, 2025 Resident Creating Document: SIRI AC RESIDENT Medical Necessity Reason Pt with a Central, PICC or Fol: No Subjective Review of Systems Patient seen and examined at the bedside. Patient is still complaining of generalized weakness, diarrhea and abdominal pain but no new complaints and rest of ROS is negative. Objective vital signs Vital Sign Date Time Temp Pulse Resp B/P (MAP) Pulse Ox O2 Delivery O2 Flow Rate FiO2 08/02/25 13:00 97.2 76 16 113/60 (77) 93 97.2 08/02/25 08:00 Nasal Cannula* 2 28 Total Intake and Output 08/01/25 08/01/25 08/02/25 15:00 23:00 07:00 Intake Total 610 ml 1150 ml 1500 ml Output Total 1200 ml Balance 610 ml -50 ml 1500 ml medications Current Medications Medications Dose Ordered Sig/Alan Route Start Time Stop Time Status Last Admin Dose Admin Morphine Sulfate 1 mg Q4HP PRN IV 07/30/25 11:00 08/01/25 06:34 1 MG Ondansetron HCl 4 mg Q4HPRN PRN IV 07/30/25 11:00 07/30/25 21:21 4 MG Aspirin 81 mg DAILY PO 07/31/25 10:00 08/02/25 09:51 81 MG Insulin Human Lispro AC SC 07/30/25 11:30 08/02/25 11:30 2 UNITS Latanoprost 1 drop HS EACHEYE 07/30/25 22:00 08/01/25 22:48 1 DROP Clopidogrel Bisulfate 75 mg DAILY PO 07/31/25 10:00 08/02/25 09:51 75 MG Atorvastatin Calcium 40 mg HS PO 07/30/25 22:00 08/01/25 21:55 40 MG Levothyroxine Sodium 75 mcg QAM@0600 PO 07/31/25 06:00 08/02/25 06:34 75 MCG Metoprolol Tartrate 25 mg BID PO 07/30/25 22:00 08/02/25 09:55 25 MG Levalbuterol HCl 0.625 mg Q6HR NEB 07/31/25 00:00 08/02/25 12:57 0.625 MG Ipratropium [place] 0.5 mg Q6HPRN PRN NEB 07/31/25 00:00 08/02/25 12:57 0.5 MG Doxycycline Hyclate 100 ml @ 50 mls/hr Q12H IV 08/01/25 09:45 08/02/25 09:51 50 MLS/HR Hydrocortisone Sodium Succinate 100 mg Q12HR IV 08/01/25 11:45 08/02/25 09:50 100 MG Piperacillin Sod/ Tazobactam Sod 100 ml @ 25 mls/hr Q8H IV 08/02/25 00:00 08/02/25 08:07 25 MLS/HR Vancomycin HCl 125 mg QID PO 08/02/25 12:00 08/02/25 14:31 125 MG Lactated Ringer's 1,000 ml @ 60 mls/hr [id number] IV 08/02/25 11:00 Examination General Appearance: Alert, Oriented X3, Cooperative, No acute distress HEENT: Atraumatic, PERRLA, EOMI, Mucous membrane moist/pink Respiratory: Clear to auscultation, Normal air movement Cardiovascular: Regular rate, Normal S1, Normal S2, No murmurs, no chest wall tenderness Abdominal: diffuse abdominal tenderness present Extremities: No clubbing, No cyanosis, No edema, Normal pulses, No tenderness/swelling Skin: No rashes, No breakdown, No significant lesion Neuro: 3/5 strength in left upper limb, 2/5 strength in left lower limb Psych/Mental Status: Mental status NL, Mood NL laboratory and microbiology Laboratory Tests 08/02/25 05:45 Test 08/02/25 05:45 Range/Units Serum Glucose 155 H 74-106 mg/dL Microbiology Date/Time Source Procedure Growth Status 08/01/25 00:00 Stool Clostridium difficile Toxin Assay - Final Complete 07/31/25 18:05 Voided Urine Urine Culture - Preliminary Resulted 07/30/25 11:55 Blood Blood Culture - Preliminary NO GROWTH AFTER 72 HOURS OF INCUBATION. Resulted Labs and/or images reviewed: Labs reviewed by me, Image(s) reviewed by me Problem List/Assessment/Plan Problem List/Assessment/Plan ENDY Likley hemodynamic mediated VMN -improving Acute diverticulitis sigmoid colon without perforation or abscess Sepsis due to above C diff colitis Possible colitis Uncomplicated UTI Nonobstructive left renal stone Asymptomatic hypovolemic hyponatremia Type 2 DM Hypothyroidism Vitamin-D deficiency Recommendations Monitor lab Strict I&Os IVF Assess fluid status daily Encouraged oral intake Renal ultrasound showed no significant changes Ordered urine studies, FENa is 0.2% Bladder scan pre and postvoid unremarkable Rest of management as per primary team Improving renal function Case discussed with Dr. Polanco. We will sign off, thank you for allowing us to participate inpatient care. Please call for any queries. Plan discussed with: Patient Dietary Evaluation Review Comments: Nutrition Recommendation: 1) Ensure Clear 240ml BID 2) Advance to soft diet as medically feasible 3) Monitor PO intake, lab values, weight trend, and I/O Expected Outcomes/Goals: GI symptoms to improve FU 3-5 days SIRI AC RESIDENT Aug 02, 2025 14:43
--- NOTE | 2025-08-02 14:46 | DVHPNRES ---
Progress Note Date Seen: Aug 02, 2025 Resident Creating Document: JAILYN TOMPKINS RESIDENT Medical Necessity Reason Pt with a Central, PICC or Fol: No Subjective Review of Systems Patient seen at bedside. She says that her abdominal pain is improving. WBC trending down, creatinine levels improving. Stool positive for C difficile. Started on vancomycin. 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 Patient also complains of associated abdominal pain and difficulty walking. She describes the diarrhea as watery and with no blood. She uses a walker to ambulate at home and was usually able to take care of herself. But since the onset of symptoms her daughter's help her. She denies any street food, sick contact or recent travel. She denies any fever, nausea, vomiting, headache. PMHx:type 2 diabetes mellitus, dyslipidemia, essential hypertension, hypothyroidism, osteoporosis, glaucoma, multiple strokes Family history: Noncontributory Social history: denies smoking, alcohol, or illicit drug use Home medication: bicarb was, alendronate, aspirin, clopidogrel, losartan, atorvastatin, levothyroxine, amlodipine Allergic history: no known allergies General: patient denies fever, fatigue, sweating, any recent changes in appetite and weight. complains of generalized weakness HEENT: No headaches, visiual changes, hearing loss, tinnitus, nasal congestion and discharge, and sore throat. Cardiovascular: Denies chest pain, palpitations, dyspnea on exertion, orthopnea, or claudication. Respiratory: No cough, and wheezing. Gastrointestinal: complains of diarrhea, abdominal pain Genitourinary: No dysuria, hematuria, discharge, frequency, urgency, nocturia, incontinence, and urinary retention. Endocrine: No heat or cold intolerance, polydipsia, polyuria, and polyphagia. Neurological: No dizziness, extremity weakness and numbness, tremors, gait disturbance, seizures, and memory impairment. Psychiatric: Denies depression, anxiety,or insomnia. Musculoskeletal: Denies neck pain, stiffness and swelling, back pain, muscle weakness, joint pain, stiffness, swelling, or limited range of motion. Skin: No rashes, itching, skin lesion, changes in hair, nail, skin texture and breast. Hematologic/Lymphatic: Denies easy bruising, bleeding tendencies, or lymph node enlargement. Objective vital signs Vital Sign Date Time Temp Pulse Resp B/P (MAP) Pulse Ox O2 Delivery O2 Flow Rate FiO2 08/02/25 13:00 97.2 76 16 113/60 (77) 93 97.2 08/02/25 08:00 Nasal Cannula* 2 28 Total Intake and Output 08/01/25 08/01/25 08/02/25 15:00 23:00 07:00 Intake Total 610 ml 1150 ml 1500 ml Output Total 1200 ml Balance 610 ml -50 ml 1500 ml medications Current Medications Medications Dose Ordered Sig/Alan Route Start Time Stop Time Status Last Admin Dose Admin Morphine Sulfate 1 mg Q4HP PRN IV 07/30/25 11:00 08/01/25 06:34 1 MG Ondansetron HCl 4 mg Q4HPRN PRN IV 07/30/25 11:00 07/30/25 21:21 4 MG Aspirin 81 mg DAILY PO 07/31/25 10:00 08/02/25 09:51 81 MG Insulin Human Lispro AC SC 07/30/25 11:30 08/02/25 11:30 2 UNITS Latanoprost 1 drop HS EACHEYE 07/30/25 22:00 08/01/25 22:48 1 DROP Clopidogrel Bisulfate 75 mg DAILY PO 07/31/25 10:00 08/02/25 09:51 75 MG Atorvastatin Calcium 40 mg HS PO 07/30/25 22:00 08/01/25 21:55 40 MG Levothyroxine Sodium 75 mcg QAM@0600 PO 07/31/25 06:00 08/02/25 06:34 75 MCG Metoprolol Tartrate 25 mg BID PO 07/30/25 22:00 08/02/25 09:55 25 MG Levalbuterol HCl 0.625 mg Q6HR NEB 07/31/25 00:00 08/02/25 12:57 0.625 MG Ipratropium [place] 0.5 mg Q6HPRN PRN NEB 07/31/25 00:00 08/02/25 12:57 0.5 MG Doxycycline Hyclate 100 ml @ 50 mls/hr Q12H IV 08/01/25 09:45 08/02/25 09:51 50 MLS/HR Hydrocortisone Sodium Succinate 100 mg Q12HR IV 08/01/25 11:45 08/02/25 09:50 100 MG Piperacillin Sod/ Tazobactam Sod 100 ml @ 25 mls/hr Q8H IV 08/02/25 00:00 08/02/25 08:07 25 MLS/HR Vancomycin HCl 125 mg QID PO 08/02/25 12:00 08/02/25 14:31 125 MG Lactated Ringer's 1,000 ml @ 60 mls/hr [id number] IV 08/02/25 11:00 Examination General Appearance: Alert, Oriented X3, Cooperative, No acute distress HEENT: Atraumatic, PERRLA, EOMI, Mucous membrane moist/pink Respiratory: Clear to auscultation, Normal air movement Cardiovascular: Regular rate, Normal S1, Normal S2, No murmurs, no chest wall tenderness Abdominal: diffuse abdominal tenderness present Extremities: No clubbing, No cyanosis, No edema, Normal pulses, No tenderness/swelling Skin: No rashes, No breakdown, No significant lesion Neuro: 3/5 strength in left upper limb, 2/5 strength in left lower limb Psych/Mental Status: Mental status NL, Mood NL laboratory and microbiology Laboratory Tests 08/02/25 05:45 Test 08/02/25 05:45 Range/Units Serum Glucose 155 H 74-106 mg/dL Microbiology Date/Time Source Procedure Growth Status 08/01/25 00:00 Stool Clostridium difficile Toxin Assay - Final Complete 07/31/25 18:05 Voided Urine Urine Culture - Preliminary Resulted 07/30/25 11:55 Blood Blood Culture - Preliminary NO GROWTH AFTER 72 HOURS OF INCUBATION. Resulted Problem List/Assessment/Plan Problem List/Assessment/Plan Assessment/Plan Intractable abdominal pain due to acute diverticulitis Acute diverticulitis sigmoid colon without perforation or abscess Sepsis due to above C.Difficile colitis Vancomycin IV fluids Hydrocortisone CT abdomen and pelvis: Mild wall thickening and adjacent hazy density of the proximal sigmoid colon which is questionable for diverticulitis. Check blood culture, stool culture enteric panel evaluation for possible Enterococcus, Gram-negative rods, anaerobes C diff, stool for ova parasite and Empiric antibiotic ceftriaxone and Flagyl started NPO while patient in pain Clear liquid diet when pain and nausea resolved admits to low-fiber diet Possible colonoscopy 2-3 months later GI consult as per primary team Antiemetic IV Pain control with IV meds Monitor volume Uncomplicated UTI on antibiotics IV fluids Nonobstructive left renal stone IVF Pain management Tamsulosin 0.4 mg ENDY on CKD GFR 43 CKD stage 3 Baseline creatinine IVF Check urine sodium, urine creatinine to assess ENDY Nephrology consult Avoid nephrotoxic medication Renal function daily Asymptomatic hypovolemic hyponatremia Urine osmolality, serum osmolality Fluid restriction 1.5 L for possible SIADH Transfer sodium level daily while asymptomatic History of multiple stroke, recent on May 2024 EKG shows sinus rhythm, HR 74, QTC 492 No residual weakness Continue aspirin and Plavix Follow-up neurology outpatient Physical therapy Essential hypertension Monitor blood pressure Amlodipine Metoprolol losartan Type 2 diabetes mellitus Home medication acarbose Insulin sliding scale Monitor blood sugar HbA1c 6.0 Hypothyroidism Levothyroxine 75 mcg daily and levothyroxine 88 mcg every alternate TSH 9.02 Hypocalcemia calcium level 7.6> 7.1 Vitamin-D deficiency Vitamin-D level Glaucoma Latanoprost Right knee pain likely osteoarthritis Tylenol as needed GI prophylaxis: Pantoprazole DVT prophylaxis: Lovenox Case discussed with Dr. Dc Plan discussed with: Patient Dietary Evaluation Review Comments: Nutrition Recommendation: 1) Ensure Clear 240ml BID 2) Advance to soft diet as medically feasible 3) Monitor PO intake, lab values, weight trend, and I/O Expected Outcomes/Goals: GI symptoms to improve FU 3-5 days Date of Service: Aug 02, 2025 Billing Provider: MORGAN SAGE MD Common Visit Codes: [id number] INP/OBS CARE(HIGH) JAILYN TOMPKINS RESIDENT Aug 02, 2025 14:46
--- NOTE | 2025-08-02 17:16 | DVHSR ---
APPROVED REPORT EXAM: Two-dimensional and M-mode echocardiogram with Doppler and color Doppler. Blood Pressure: 122/70 mmHg INDICATION SOB RISK FACTORS Height: 5'4, Weight: 145 DIMENSIONS LVDd 4.0 (3.8-5.7cm) LA (2D) (1.9-4.0cm) Aortic Root 2.9 (2.0-3.7cm) LVDs 2.8 (2.5-4.0cm) LA (MM) (1.9-4.0cm) Aortic Cusp Exc 1.1 (1.5-2.0cm) EF (%) 55.0 (55-70%) Rt. Atrium (1.9-4.0cm) Asc. Aorta 3.7 cm IVSd 1.5 (0.7-1.1cm) RV (D) (1.8-2.4cm) PWd 0.8 (0.7-1.1cm) Mitral Valve Mitral Mitral Stenosis E/A ratio 0.0 2D MVA cm2 Aortic Valve Aortic Valve Aortic Stenosis V1 1.10m/s AO Mean GR. 6mmHg V2 1.56m/s AO Peak GR. 10mmHg LVOT Diameter 1.7 (1.8-2.4cm) Doppler JENNY 1.60cm2 AI P 1/2 Time 406.94ms Pulmonic Valve V2 1.03m/s Other Information Technically limited study due to body habitus and patient position Conclusion Sinus rhythm. Concentric LVH. Aortic root enlargement. Thickening and calcification of the posterior mitral leaflet. Mild to moderate mitral annular calcification. Mild aortic sclerosis without stenosis. Tricuspid and pulmonic normal. Left ventricular function is preserved at 65% with normal RV function. Mild aortic insufficiency. Mild tricuspid regurgitation. No pericardial effusion masses or vegetations.
[2025-08-03] VITALS (16 sets, daily range): BP systolic 120–148; BP diastolic 60–93; PULSE 52–90; RESP 16–18; TEMP 96.6–98.1; O2SAT 95–100
[2025-08-03 06:46] LABS: Hematocrit 30.6 % (36.0-46.0); Hemoglobin 10.5 g/dL (12.2-16.2); Mean Corpuscular Hemoglobin 32.5 pg (28.0-32.0); Mean Corpuscular Volume 94.2 fL (80.0-100.0); Nucleated Red Blood Cells % 0.1 %
[2025-08-03 06:54] LABS: Alanine Aminotransferase 25 U/L (7-40); Alkaline Phosphatase 56 U/L (46-116); Anion Gap 11 (5-15); BUN/Creatinine Ratio 10.3 (10.0-20.0); Blood Urea Nitrogen 11 mg/dL (9-23); Carbon Dioxide 25 mmol/L (20-31); Chloride 102 mmol/L (98-107); Sodium 138 mmol/L (136-145)
[2025-08-03 06:55] LABS: Bilirubin, Total 0.4 mg/dL (0.2-1.0)
[2025-08-03 07:08] LABS: Calcium 6.9 mg/dL (8.7-10.4); Glucose 162 mg/dL (74-106); Potassium 3.3 mmol/L (3.5-5.1); Total Protein 5.6 g/dL (5.7-8.2)
[2025-08-03 07:09] LABS: Albumin 2.9 g/dL (3.2-4.8)
--- NOTE | 2025-08-03 14:00 | DVHPNRES ---
Progress Note Date Seen: Aug 03, 2025 Resident Creating Document: JAILYN TOMPKINS RESIDENT Medical Necessity Reason Pt with a Central, PICC or Fol: No Subjective Review of Systems Patient seen at bedside. She says that her abdominal pain is improving. creatinine levels improving. increased dose of vancomycin and started on cholestyramine. 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 Patient also complains of associated abdominal pain and difficulty walking. She describes the diarrhea as watery and with no blood. She uses a walker to ambulate at home and was usually able to take care of herself. But since the onset of symptoms her daughter's help her. She denies any street food, sick contact or recent travel. She denies any fever, nausea, vomiting, headache. PMHx:type 2 diabetes mellitus, dyslipidemia, essential hypertension, hypothyroidism, osteoporosis, glaucoma, multiple strokes Family history: Noncontributory Social history: denies smoking, alcohol, or illicit drug use Home medication: bicarb was, alendronate, aspirin, clopidogrel, losartan, atorvastatin, levothyroxine, amlodipine Allergic history: no known allergies General: patient denies fever, fatigue, sweating, any recent changes in appetite and weight. complains of generalized weakness HEENT: No headaches, visiual changes, hearing loss, tinnitus, nasal congestion and discharge, and sore throat. Cardiovascular: Denies chest pain, palpitations, dyspnea on exertion, orthopnea, or claudication. Respiratory: No cough, and wheezing. Gastrointestinal: complains of diarrhea, abdominal pain Genitourinary: No dysuria, hematuria, discharge, frequency, urgency, nocturia, incontinence, and urinary retention. Endocrine: No heat or cold intolerance, polydipsia, polyuria, and polyphagia. Neurological: No dizziness, extremity weakness and numbness, tremors, gait disturbance, seizures, and memory impairment. Psychiatric: Denies depression, anxiety,or insomnia. Musculoskeletal: Denies neck pain, stiffness and swelling, back pain, muscle weakness, joint pain, stiffness, swelling, or limited range of motion. Skin: No rashes, itching, skin lesion, changes in hair, nail, skin texture and breast. Hematologic/Lymphatic: Denies easy bruising, bleeding tendencies, or lymph node enlargement. Objective vital signs Vital Sign Date Time Temp Pulse Resp B/P (MAP) Pulse Ox O2 Delivery O2 Flow Rate FiO2 08/03/25 13:00 97.5 55 18 148/79 (102) 98 97.5 08/03/25 11:39 Room Air* 0 21 Total Intake and Output 08/02/25 08/02/25 08/03/25 15:00 23:00 07:00 Intake Total 100 ml 700 ml 680 ml Output Total 1200 ml Balance 100 ml 700 ml -520 ml medications Current Medications Medications Dose Ordered Sig/Alan Route Start Time Stop Time Status Last Admin Dose Admin Morphine Sulfate 1 mg Q4HP PRN IV 07/30/25 11:00 08/01/25 06:34 1 MG Ondansetron HCl 4 mg Q4HPRN PRN IV 07/30/25 11:00 07/30/25 21:21 4 MG Aspirin 81 mg DAILY PO 07/31/25 10:00 08/03/25 09:23 81 MG Insulin Human Lispro AC SC 07/30/25 11:30 08/03/25 11:58 1 UNITS Latanoprost 1 drop HS EACHEYE 07/30/25 22:00 08/02/25 22:11 1 DROP Clopidogrel Bisulfate 75 mg DAILY PO 07/31/25 10:00 08/03/25 09:23 75 MG Atorvastatin Calcium 40 mg HS PO 07/30/25 22:00 08/02/25 22:00 40 MG Levothyroxine Sodium 75 mcg QAM@0600 PO 07/31/25 06:00 08/03/25 06:10 75 MCG Metoprolol Tartrate 25 mg BID PO 07/30/25 22:00 08/03/25 09:24 25 MG Levalbuterol HCl 0.625 mg Q6HR NEB 07/31/25 00:00 08/03/25 11:39 0.625 MG Ipratropium [place] 0.5 mg Q6HPRN PRN NEB 07/31/25 00:00 08/03/25 11:38 0.5 MG Doxycycline Hyclate 100 ml @ 50 mls/hr Q12H IV 08/01/25 09:45 08/03/25 09:18 50 MLS/HR Hydrocortisone Sodium Succinate 100 mg Q12HR IV 08/01/25 11:45 08/03/25 09:24 100 MG Piperacillin Sod/ Tazobactam Sod 100 ml @ 25 mls/hr Q8H IV 08/02/25 00:00 08/03/25 09:17 25 MLS/HR Vancomycin HCl 125 mg QID PO 08/02/25 12:00 08/03/25 11:48 125 MG Lactated Ringer's 1,000 ml @ 60 mls/hr [id number] IV 08/02/25 11:00 08/03/25 03:40 60 MLS/HR Examination General Appearance: Alert, Oriented X3, Cooperative, No acute distress HEENT: Atraumatic, PERRLA, EOMI, Mucous membrane moist/pink Respiratory: Clear to auscultation, Normal air movement Cardiovascular: Regular rate, Normal S1, Normal S2, No murmurs, no chest wall tenderness Abdominal: diffuse abdominal tenderness present Extremities: No clubbing, No cyanosis, No edema, Normal pulses, No tenderness/swelling Skin: No rashes, No breakdown, No significant lesion Neuro: 3/5 strength in left upper limb, 2/5 strength in left lower limb Psych/Mental Status: Mental status NL, Mood NL laboratory and microbiology Laboratory Tests 08/03/25 05:44 Test 08/03/25 05:44 Range/Units Serum Glucose 162 H 74-106 mg/dL Microbiology Date/Time Source Procedure Growth Status 08/01/25 00:00 Stool Clostridium difficile Toxin Assay - Final Complete 07/31/25 18:05 Voided Urine Urine Culture - Final Complete 07/30/25 11:55 Blood Blood Culture - Preliminary NO GROWTH AFTER 72 HOURS OF INCUBATION. Resulted Problem List/Assessment/Plan Problem List/Assessment/Plan Assessment/Plan Intractable abdominal pain due to acute diverticulitis Acute diverticulitis sigmoid colon without perforation or abscess Sepsis due to above C.Difficile colitis Vancomycin Cholestyramine IV fluids Hydrocortisone CT abdomen and pelvis: Mild wall thickening and adjacent hazy density of the proximal sigmoid colon which is questionable for diverticulitis. Check blood culture, stool culture enteric panel evaluation for possible Enterococcus, Gram-negative rods, anaerobes C diff, stool for ova parasite and Empiric antibiotic ceftriaxone and Flagyl started NPO while patient in pain Clear liquid diet when pain and nausea resolved admits to low-fiber diet Possible colonoscopy 2-3 months later GI consult as per primary team Antiemetic IV Pain control with IV meds Monitor volume Uncomplicated UTI on antibiotics IV fluids Nonobstructive left renal stone IVF Pain management Tamsulosin 0.4 mg ENDY on CKD GFR 43 CKD stage 3 Baseline creatinine IVF Check urine sodium, urine creatinine to assess ENDY Nephrology consult Avoid nephrotoxic medication Renal function daily Asymptomatic hypovolemic hyponatremia Urine osmolality, serum osmolality Fluid restriction 1.5 L for possible SIADH Transfer sodium level daily while asymptomatic History of multiple stroke, recent on May 2024 EKG shows sinus rhythm, HR 74, QTC 492 No residual weakness Continue aspirin and Plavix Follow-up neurology outpatient Physical therapy Essential hypertension Monitor blood pressure Amlodipine Metoprolol losartan Type 2 diabetes mellitus Home medication acarbose Insulin sliding scale Monitor blood sugar HbA1c 6.0 Hypothyroidism Levothyroxine 75 mcg daily and levothyroxine 88 mcg every alternate TSH 9.02 Hypocalcemia calcium level 7.6> 7.1 Vitamin-D deficiency Vitamin-D level Glaucoma Latanoprost Right knee pain likely osteoarthritis Tylenol as needed GI prophylaxis: Pantoprazole DVT prophylaxis: Lovenox Case discussed with Dr. Dc Plan discussed with: Patient Dietary Evaluation Review Comments: Nutrition Recommendation: 1) Ensure Clear 240ml BID 2) Advance to soft diet as medically feasible 3) Monitor PO intake, lab values, weight trend, and I/O Expected Outcomes/Goals: GI symptoms to improve FU 3-5 days Date of Service: Aug 03, 2025 Billing Provider: MORGAN SAGE MD Common Visit Codes: [id number] INP/OBS CARE(HIGH) JAILYN TOMPKINS RESIDENT Aug 03, 2025 14:00
[2025-08-04] VITALS (16 sets, daily range): BP systolic 105–174; BP diastolic 56–91; PULSE 58–96; RESP 16–20; TEMP 97.7–98.2; O2SAT 91–100
[2025-08-04] MEDS: DOXYCYCLINE 100MG/100ML 100 ML IV SCH (00:24)
[2025-08-04] MEDS: PIPERACILLIN-TAZOB 3.375GM 100 ML IV SCH (02:58)
[2025-08-04 10:45] LABS: Hematocrit 34.3 % (36.0-46.0); Hemoglobin 11.5 g/dL (12.2-16.2); Mean Corpuscular Hemoglobin 31.9 pg (28.0-32.0); Mean Corpuscular Volume 94.9 fL (80.0-100.0); Nucleated Red Blood Cells % 0.0 %
[2025-08-04 11:05] LABS: Alanine Aminotransferase 37 U/L (7-40); Albumin 3.4 g/dL (3.2-4.8); Alkaline Phosphatase 56 U/L (46-116); Anion Gap 12 (5-15); BUN/Creatinine Ratio 13.0 (10.0-20.0); Bilirubin, Total 0.5 mg/dL (0.2-1.0); Blood Urea Nitrogen 16 mg/dL (9-23); Carbon Dioxide 28 mmol/L (20-31); Chloride 101 mmol/L (98-107); Sodium 141 mmol/L (136-145); Total Protein 6.4 g/dL (5.7-8.2)
[2025-08-04 11:13] LABS: Calcium 7.9 mg/dL (8.7-10.4); Glucose 163 mg/dL (74-106); Potassium 2.7 mmol/L (3.5-5.1)
[2025-08-04] MEDS ORDERED: CHOLPOW4 PO (14:52)
[2025-08-04] MEDS ORDERED: VANC125C3 PO (14:52)
[2025-08-04] MEDS ORDERED: POTASSIUM CHL 20 Meq TABLET PO ONE (16:00)
--- NOTE | 2025-08-04 16:17 | DVHDSRES ---
Discharge Summary Date of Admission Resident Creating Document: JAILYN TOMPKINS RESIDENT Jul 30, 2025 at 10:57 Date of Discharge: Aug 04, 2025 Labs/Diagnostic Data: Laboratory Results Test 08/04/25 11:24 08/04/25 10:05 08/01/25 00:00 07/31/25 18:05 POC Glucose 201 mg/dl (70-106) White Blood Count 5.5 10^3/uL (4.4-10.8) Red Blood Count 3.61 10^6/uL (4.0-5.20) Hemoglobin 11.5 g/dL (12.2-16.2) Hematocrit 34.3 % (36.0-46.0) Mean Corpuscular Volume 94.9 fL (80.0-100.0) Mean Corpuscular Hemoglobin 31.9 pg (28.0-32.0) Mean Corpuscular Hemoglobin Concent 33.6 g/dL (32.0-36.0) Red Cell Distribution Width 14.3 % (11.8-14.3) Platelet Count 213 10^3/uL (140-450) Mean Platelet Volume 9.7 fL (6.9-10.8) Neutrophils (%) (Auto) 77.2 % (37.0-80.0) Lymphocytes (%) (Auto) 13.3 % (10.0-50.0) Monocytes (%) (Auto) 9.3 % (0.0-12.0) Eosinophils (%) (Auto) 0.1 % (0.0-7.0) Basophils (%) (Auto) 0.1 % (0.0-2.0) Neutrophils # (Auto) 4.2 10 ^3/uL (1.6-8.6) Lymphocytes # (Auto) 0.7 10 ^3/uL (0.4-5.4) Monocytes # (Auto) 0.5 10 ^3/uL (0-1.3) Eosinophils # (Auto) 0 10 ^3/uL (0-0.8) Basophils # (Auto) 0 10 ^3/uL (0-0.2) Nucleated Red Blood Cells 0.0 % Sodium Level 141 mmol/L (136-145) Potassium Level 2.7 mmol/L (3.5-5.1) Chloride Level 101 mmol/L (98-107) Carbon Dioxide Level 28 mmol/L (20-31) Anion Gap 12 (5-15) Blood Urea Nitrogen 16 mg/dL (9-23) Creatinine 1.23 mg/dL (0.550-1.02) Glomerular Filtration Rate Calc 44 mL/min (>90) BUN/Creatinine Ratio 13.0 (10.0-20.0) Serum Glucose 163 mg/dL (74-106) Calcium Level 7.9 mg/dL (8.7-10.4) Total Bilirubin 0.5 mg/dL (0.2-1.0) Aspartate Amino Transferase (AST) 66 U/L (13-40) Alanine Aminotransferase (ALT) 37 U/L (7-40) Alkaline Phosphatase 56 U/L (46-116) Total Protein 6.4 g/dL (5.7-8.2) Albumin 3.4 g/dL (3.2-4.8) Stool for White Cells Rare Urine Creatinine 108.27 mg/dL (30.0-125.0) Urine Microalbumin 48.0 mg/L (<30.0) Urine Protein/Creatinine Ratio 0.61 Urine Sodium 16 mmol/L (40-220) Urine Total Protein 65.6 mg/dL (1-14) Test 07/31/25 13:35 07/31/25 05:05 07/30/25 13:57 07/30/25 13:45 Influenza Type A Antigen Negative (Negative) Influenza Type B Antigen Negative (Negative) SARS-CoV-2 Antigen (Rapid) Negative (NEGATIVE) Phosphorus Level 2.7 mg/dL (2.4-5.1) Magnesium Level 2.0 mg/dL (1.6-2.6) Differential Total Cells Counted 100.0 (100) Neutrophils % (Manual) 60 (37.0-80.0) Band Neutrophils % (Manual) 9 Lymphocytes % (Manual) 14 (10.0-50.0) Monocytes % (Manual) 17 (0-12) Eosinophils % (Manual) 0 (0-7) Basophils % (Manual) 0 (0.0-2.0) Metamyelocytes % (manual) 0 Myelocytes % (Manual) 0 Promyelocytes % (Manual) 0 Blast Cells % (Manual) 0 Reactive Lymphocytes 0 Platelet Estimate Decreased Hemoglobin A1c 6.0 % A1C (<5.7) B-Type Natriuretic Peptide 378.24 pg/mL (0-100) Urine Color Brown (Yellow) Urine Clarity Ex.turbid (Clear) Urine pH 7.0 (5.0-9.0) Urine Specific [place] 1.006 (1.001-1.035) Urine Protein 2+ (Negative) Urine Ketones Negative (Negative) Urine Blood 2+ /uL (Negative) Urine Nitrite Negative (Negative) Urine Bilirubin Negative (Negative) Urine Urobilinogen Normal mg/dL (Negative) Urine Leukocyte Esterase 3+ /uL (Negative) Urine RBC 95 /hpf (0 - 4) Urine WBC Clumps Present /hpf (None Seen) Urine Microscopic WBC 1000 /HPF (0-5) Urine Squamous Epithelial Cells None seen /hpf (<5) Urine Amorphous Crystals Few /hpf (None Seen) Urine Bacteria Many /hpf (None Seen) Urine Mucus Moderate (None Seen) Urine Osmolality 186 mOsm/kg Urine Glucose Normal mg/dL (Normal) Test 07/30/25 11:25 07/30/25 02:00 Prothrombin Time 11.6 sec (9.3-11.8) Prothrombin Time INR 1.11 (0.9-1.15) Activated Partial Thromboplast Time 31.4 SEC (24.5-34.5) Serum Osmolality 276 mOsm/kg (278-298) Vitamin B12 Level 1872 pg/mL (211-911) Vitamin D 25-Hydroxy 48.8 ng/mL (30.0-100) Thyroid Stimulating Hormone (TSH) 9.02 uIU/mL (0.55-4.78) Lactic Acid Level 1.0 mmol/L (0.4-2.0) Troponin I High Sensitivity 13 ng/L (</=34) Lipase 16 U/L (12-53) Other Laboratory Tests 08/04/25 10:05 Brief Hx & Hospital Course: Elvie Lima is an 85-year-old female, Syriac-speaking with past medical history of type 2 diabetes mellitus, dyslipidemia, essential hypertension, hypothyroidism, osteoporosis, glaucoma, 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 Patient also complained of associated abdominal pain and difficulty walking. She described the diarrhea as watery and with no blood. She used a walker to ambulate at home and was usually able to take care of herself. But since the onset of symptoms her daughter's help her. She denied any street food, sick contact or recent travel. She denies any fever, nausea, vomiting, headache.WBC counts were elevated due to abdominal and urinary tract infection. Potassium levels were low and creatinine levels were trending high. Chest x-ray revealed minimal fluid in the left lung base. CT abdomen pelvis revealed possible diverticulitis, nonobstructing left renal stone. renal ultrasound was normal. Repeat chest x-ray showed signs of atypical infection. stool came back positive for Clostridium difficile. Patient was treated with antibiotics, IV fluids, vancomycin oral, insulin and potassium. During the course of hospitalization patient hospital clinically and is hence being discharged. Discharge plan Follow up with PCP in 1 week Follow up with [facility] clinic in 1 week follow up with GI as outpatient for colonoscopy Vancomycin 250 mg orally 4 times a day for 10 days Cholestyramine once a day for 5 days continue home medications Condition at Discharge: Fair Final Diagnosis/Problems List Sepsis due to below C.Difficile colitis Pleural effusion due to atelectasis Intractable abdominal pain due to acute diverticulitis Acute diverticulitis sigmoid colon without perforation or abscess acute UTI Nonobstructive left renal stone ENDY on CKD, likely due to VMN Asymptomatic hypovolemic hyponatremia History of multiple stroke, recent on May 2024 Essential hypertension Type 2 diabetes mellitus Hypothyroidism Hypocalcemia Vitamin-D deficiency Glaucoma Right knee pain likely osteoarthritis Discharge Disposition: Home Discharge Instruct/Medications Diet: Regular Activity: No Restrictions, As Tolerated Follow Up/Referral: Follow up with the PCP within 1 week of the discharge. Follow up with the discharge Clinic within 1 week of the discharge. follow up with GI as outpatient for colonoscopy Medications: Vancomycin 250 mg 4 times a day for 10 days. Cholestyramine once daily for 5 days Continue home meds Scheduled Aspirin (Aspir-81), 1 TAB PO DAILY, (Reported) Atorvastatin Calcium (Atorvastatin Calcium), 1 TAB PO DAILY, (Reported) Cholestyramine (Cholestyramine), 4 GM PO DAILY Clopidogrel Bisulfate (Clopidogrel), 1 TAB PO DAILY, (Reported) Latanoprost (Latanoprost), 1 DROP EACHEYE QPM, (Reported) Levothyroxine Sodium (Levothyroxine Sodium), 1 TAB PO DAILY, (Reported) Losartan Potassium (Losartan Potassium), 1 TAB PO DAILY, (Reported) Metoprolol Tartrate (Lopressor), 25 MG PO Q12HR, (Reported) Vancomycin HCl (Vancomycin HCl), 250 MG PO QID Miscellaneous Medications Acarbose (Acarbose), 25 MG PO, (Reported) Alendronate Sodium (Alendronate Sodium), 70 MG OR, (Reported) [id number] (Otic) (Cortisporin Otic Susp), 1 DROP OT, (Reported) Discharge Statement: "Patient was advised to return to the ER or call 911 if any headaches, dizziness, shortness of breath, chest pain, abdominal pain, bleeding, fevers, or worsening of medical condition. Patient was counseled about treatment plan, medications, possible side effects, patientverbalized understanding. All questions were answered to the best of my ability. This discharge took greater then 30 minutes in planning, reviewing documentation, counseling the patient, and discussing with other team members." ASSESSMENT ASSESSMENT Assessment C diff diarrhea Date of Service: Aug 04, 2025 Billing Provider: MORGAN SAGE MD Common Visit Codes: [id number] INP/OBS CARE(HIGH) JAILYN TOMPKINS RESIDENT Aug 04, 2025 16:17 MORGAN SAGE MD Aug 04, 2025 16:52
[2025-08-04] MEDS: POTASSIUM CHLORIDE 40 MEQ, LIDOCAINE 1% (LOCAL ANESTH.) 4 ML in SODIUM CHL 0.9% 250 ML IV ONE (17:06)
[2025-08-04] MEDS: POTASSIUM EFFERVESENT TAB 25 MEQ PO ONE (17:46)
[2025-08-05] VITALS (15 sets, daily range): BP systolic 123–175; BP diastolic 63–86; PULSE 59–106; RESP 1–20; TEMP 97.5–98.1; O2SAT 91–100
[2025-08-05 06:55] LABS: Hematocrit 32.8 % (36.0-46.0); Hemoglobin 11.1 g/dL (12.2-16.2); Mean Corpuscular Hemoglobin 32.3 pg (28.0-32.0); Mean Corpuscular Volume 95.6 fL (80.0-100.0); Nucleated Red Blood Cells % 0.2 %
[2025-08-05 07:18] LABS: Alanine Aminotransferase 40 U/L (7-40); Albumin 3.2 g/dL (3.2-4.8); Alkaline Phosphatase 48 U/L (46-116); Anion Gap 13 (5-15); BUN/Creatinine Ratio 20.2 (10.0-20.0); Blood Urea Nitrogen 22 mg/dL (9-23); Carbon Dioxide 30 mmol/L (20-31); Sodium 141 mmol/L (136-145); Total Protein 5.8 g/dL (5.7-8.2)
[2025-08-05 07:19] LABS: Bilirubin, Total 0.5 mg/dL (0.2-1.0)
[2025-08-05 07:21] LABS: Calcium 7.6 mg/dL (8.7-10.4); Chloride 98 mmol/L (98-107); Glucose 165 mg/dL (74-106); Potassium 3.1 mmol/L (3.5-5.1)
[2025-08-05] MEDS: POTASSIUM CHLORIDE 40 MEQ, LIDOCAINE 1% (LOCAL ANESTH.) 4 ML in SODIUM CHL 0.9% 250 ML IV ONE (08:15)
[2025-08-05] MEDS ORDERED: HYDR25TA87 PO (11:56)
[2025-08-05] MEDS ORDERED: BACL10TA PO (11:56)
[2025-08-05] MEDS ORDERED: POTASSIUM CHL 20 Meq TABLET PO ONE (12:20)
[2025-08-05] MEDS: POTASSIUM CHL 20 Meq TABLET PO ONE (12:22)
[2025-08-05] MEDS ORDERED: HYDROcodone-ACET 5/325MG TAB ONE (15:45)
[2025-08-05] MEDS ORDERED: POTA-220 PO (15:56)
[2025-08-06] VITALS (9 sets, daily range): BP systolic 144–179; BP diastolic 73–81; PULSE 69–81; RESP 16–20; TEMP 97.4–98.7; O2SAT 70–100
[2025-08-06 11:03] LABS: Sodium 141 mmol/L (136-145)
[2025-08-06 11:04] LABS: Anion Gap 14 (5-15)
[2025-08-06 11:07] LABS: Calcium 7.7 mg/dL (8.7-10.4); Carbon Dioxide 34 mmol/L (20-31); Chloride 93 mmol/L (98-107); Potassium 2.7 mmol/L (3.5-5.1)
[2025-08-06 11:09] LABS: BUN/Creatinine Ratio 20.7 (10.0-20.0)
[2025-08-06 11:11] LABS: Blood Urea Nitrogen 23 mg/dL (9-23); Glucose 171 mg/dL (74-106)
--- NOTE | 2025-08-06 13:39 | DVHPNRES ---
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 Patient also complains of associated abdominal pain and difficulty walking. She describes the diarrhea as watery and with no blood. She uses a walker to ambulate at home and was usually able to take care of herself. But since the onset of symptoms her daughter's help her. She denies any street food, sick contact or recent travel. She denies any fever, nausea, vomiting, headache. 08/06, the patient seen and examined at the bedside. Patient is feeling better, but does not have any active complaint. Patient was discharged yesterday, due to home health arrangement, discharge delayed. Today will be discharged today. Objective vital signs Vital Sign Date Time Temp Pulse Resp B/P (MAP) Pulse Ox O2 Delivery O2 Flow Rate FiO2 08/06/25 12:48 97.8 76 16 144/73 (96) 96 97.8 08/06/25 11:42 Room Air* 0 21 Total Intake and Output 08/05/25 08/05/25 08/06/25 15:00 23:00 07:00 Intake Total 300 ml 1000 ml Balance 300 ml 1000 ml medications Current Medications Medications Dose Ordered Sig/Alan Route Start Time Stop Time Status Last Admin Dose Admin Morphine Sulfate 1 mg Q4HP PRN IV 07/30/25 11:08/01/25 06:34 1 MG Ondansetron HCl 4 mg Q4HPRN PRN IV 07/30/25 11:00 07/30/25 21:21 4 MG Aspirin 81 mg DAILY PO 07/31/25 10:00 08/06/25 10:43 81 MG Insulin Human Lispro AC SC 07/30/25 11:30 08/05/25 17:00 1 UNITS Latanoprost 1 drop HS EACHEYE 07/30/25 22:00 08/05/25 23:17 1 DROP Clopidogrel Bisulfate 75 mg DAILY PO 07/31/25 10:00 08/06/25 10:43 75 MG Atorvastatin Calcium 40 mg HS PO 07/30/25 22:00 08/05/25 23:07 40 MG Levothyroxine Sodium 75 mcg QAM@0600 PO 07/31/25 06:00 08/06/25 06:38 75 MCG Metoprolol Tartrate 25 mg BID PO 07/30/25 22:00 08/06/25 10:44 25 MG Levalbuterol HCl 0.625 mg Q6HR NEB 07/31/25 00:00 08/06/25 11:51 0.625 MG Ipratropium [place] 0.5 mg Q6HPRN PRN NEB 07/31/25 00:00 08/05/25 12:08 0.5 MG Hydrocortisone Sodium Succinate 100 mg Q12HR IV 08/01/25 11:45 08/05/25 23:07 100 MG Vancomycin HCl 125 mg QID PO 08/02/25 12:00 08/06/25 11:56 125 MG Lactated Ringer's 1,000 ml @ 60 mls/hr [id number] IV 08/02/25 11:00 08/04/25 15:06 60 MLS/HR Piperacillin Sod/ Tazobactam Sod 100 ml @ 25 mls/hr Q8H IV 08/04/25 02:30 08/06/25 04:24 25 MLS/HR Doxycycline Hyclate 100 ml @ 50 mls/hr Q12H IV 08/04/25 00:30 08/06/25 02:27 50 MLS/HR Examination General Appearance: Alert, Oriented X3, Cooperative, No acute distress HEENT: Atraumatic, PERRLA, EOMI, Mucous membrane moist/pink Respiratory: Clear to auscultation, Normal air movement Cardiovascular: Regular rate, Normal S1, Normal S2, No murmurs, no chest wall tenderness Abdominal: diffuse abdominal tenderness present Extremities: No clubbing, No cyanosis, No edema, Normal pulses, No tenderness/swelling Skin: No rashes, No breakdown, No significant lesion Neuro: 3/5 strength in left upper limb, 2/5 strength in left lower limb Psych/Mental Status: Mental status NL, Mood NL laboratory and microbiology Laboratory Tests 08/06/25 10:02 08/05/25 06:38 Test 08/06/25 10:02 Range/Units Serum Glucose 171 H 74-106 mg/dL Microbiology Date/Time Source Procedure Growth Status 08/01/25 00:00 Stool Clostridium difficile Toxin Assay - Final Complete 07/31/25 18:05 Voided Urine Urine Culture - Final Complete 07/30/25 11:55 Blood Blood Culture - Final NO GROWTH AFTER 5 DAYS OF INCUBATION. Complete Labs and/or images reviewed: Labs reviewed by me, Image(s) reviewed by me Problem List/Assessment/Plan Problem List/Assessment/Plan Intractable abdominal pain due to acute diverticulitis Acute diverticulitis sigmoid colon without perforation or abscess Sepsis due to above C.Difficile colitis Vancomycin Cholestyramine IV fluids Hydrocortisone CT abdomen and pelvis: Mild wall thickening and adjacent hazy density of the proximal sigmoid colon which is questionable for diverticulitis. Check blood culture, stool culture enteric panel evaluation for possible Enterococcus, Gram-negative rods, anaerobes C diff, stool for ova parasite and Empiric antibiotic ceftriaxone and Flagyl started NPO while patient in pain Clear liquid diet when pain and nausea resolved admits to low-fiber diet Possible colonoscopy 2-3 months later GI consult as per primary team Antiemetic IV Pain control with IV meds Monitor volume Uncomplicated UTI on antibiotics IV fluids Nonobstructive left renal stone IVF Pain management Tamsulosin 0.4 mg ENDY on CKD GFR 43 CKD stage 3 Baseline creatinine IVF Check urine sodium, urine creatinine to assess ENDY Nephrology consult Avoid nephrotoxic medication Renal function daily Asymptomatic hypovolemic hyponatremia Urine osmolality, serum osmolality Fluid restriction 1.5 L for possible SIADH Transfer sodium level daily while asymptomatic History of multiple stroke, recent on May 2024 EKG shows sinus rhythm, HR 74, QTC 492 No residual weakness Continue aspirin and Plavix Follow-up neurology outpatient Physical therapy Essential hypertension Monitor blood pressure Amlodipine Metoprolol losartan Type 2 diabetes mellitus Home medication acarbose Insulin sliding scale Monitor blood sugar HbA1c 6.0 Hypothyroidism Levothyroxine 75 mcg daily and levothyroxine 88 mcg every alternate TSH 9.02 Hypocalcemia calcium level 7.6> 7.1 Vitamin-D deficiency Vitamin-D level Glaucoma Latanoprost Right knee pain likely osteoarthritis Tylenol as needed GI prophylaxis: Pantoprazole DVT prophylaxis: Lovenox Patient seen and examined at the bedside. Patient is feeling better, does not have any active complaint. The patient was discharged yesterday , but due to problem with home health arrangement, discharge delayed. The patient will be discharged home today. Case discussed with Dr. Dc Plan discussed with: Patient, Other (RN) My Orders My Orders Orders - CLAUDE ROLON Procedure Category Date Status Time Discharge DISCHARGE 08/06/25 Transmitted 11:51 Discharge DISCHARGE 08/06/25 Transmitted 11:51 Dietary Evaluation Review Comments: Nutrition Recommendation: 1) Ensure Clear 240ml BID 2) Advance to soft diet as medically feasible 3) Monitor PO intake, lab values, weight trend, and I/O Expected Outcomes/Goals: GI symptoms to improve FU 3-5 days Date of Service: Aug 06, 2025 Billing Provider: MORGAN SAGE MD Common Visit Codes: [id number] INP/OBS CARE(HIGH) CLAUDE ROLON Aug 06, 2025 13:39
== END 2025-08-06 12:58 | disposition home health service (06) | DRG 871 ==
LOC: EDBD 00:13 → ER 00:13 → OVERFLOW 10:57 → CENTRAL 21:25 → TELE-CENTR 07-31 04:29
PROVIDERS: ADMIT Student in an Organized Health Care Education/Training Program; ATTEND Student in an Organized Health Care Education/Training Program
DX: A41.9 Sepsis, unspecified organism (principal); J96.00 Acute respiratory failure, unspecified whether with hypoxia or hypercapnia; N17.0 Acute kidney failure with tubular necrosis; J90 Pleural effusion, not elsewhere classified; A04.72 Enterocolitis due to Clostridium difficile, not specified as recurrent; Z66 Do not resuscitate; K57.32 Diverticulitis of large intestine without perforation or abscess without bleeding; N39.0 Urinary tract infection, site not specified; I12.9 Hypertensive chronic kidney disease with stage 1 through stage 4 chronic kidney disease, or unspecified chronic kidney disease; N18.30 Chronic kidney disease, stage 3 unspecified; E03.9 Hypothyroidism, unspecified; E11.39 Type 2 diabetes mellitus with other diabetic ophthalmic complication; E87.1 Hypo-osmolality and hyponatremia; J98.11 Atelectasis; E86.1 Hypovolemia; M81.0 Age-related osteoporosis without current pathological fracture; H42 Glaucoma in diseases classified elsewhere; Z20.822 Contact with and (suspected) exposure to COVID-19; E55.9 Vitamin D deficiency, unspecified; N20.0 Calculus of kidney; Z79.82 Long term (current) use of aspirin; Z79.899 Other long term (current) drug therapy; Z86.73 Personal history of transient ischemic attack (TIA), and cerebral infarction without residual deficits
CPT/HCPCS: 36415; 71045; 74018; 74176; 76775; 80048; 80053; 81001; 82043; 82306; 82570; 82607; 82962; 83036; 83605; 83690; 83735; 83880; 83930; 83935; 84100; 84156; 84300; 84443; 84484; 85007; 85025; 85027; 85048; 85610; 85730; 87040; 87045; 87086; 87177; 87426; 87427; 87493; 87804; 93005; 93306; 94640; 96365; 96367; 96375; 97110; 97116; 97163; 97530; G0378; J1815; J2003; J2405; J2543; J3480; J3490